=== PATIENT | female | born 1955 | race Caucasian/White ===

== ENCOUNTER 2022-12-12 10:52 | Outpatient (OUT) | payer MEDICARE, SELFPAY ==
[2022-12-12 11:43] LABS: Basophils Absolute Auto 0.1 10^3/uL (0.0-0.1); Basophils Percent Auto 0.6 % (0.2-2.0); Eosinophils Absolute Auto 0.3 10^3/uL (0.0-0.7); Eosinophils Percent Auto 3.1 % (0.9-7.0); Hematocrit 46.7 % (36.0-48.0); Hemoglobin 15.3 g/dL (12.0-16.0); Immature Granulocytes Abs Auto 0.03 10^3/uL (0.00-0.03); Immature Granulocytes Pct Auto 0.3 % (0.0-0.5); Lymphocytes Percent Auto 32.8 % (20.5-60.0); Mean Corpuscular HGB Conc 32.8 g/dL (29.9-35.2); Mean Corpuscular Volume 97.7 fL (81.0-99.0); Mean Platelet Volume 9.6 fL (9.5-13.5); Monocytes Absolute Auto 0.7 10^3/uL (0.3-0.8); Neutrophils Absolute Auto 5.2 10^3/uL (1.4-6.5); Neutrophils Percent Auto 56.2 % (43.0-75.0); Platelet Count 226 10^3/uL (150-450); Red Blood Count 4.78 10^6/uL (4.20-5.40); Red Cell Distribution Width 12.9 % (11.0-15.0); White Blood Count 9.3 10^3/uL (4.0-11.0)
[2022-12-12 12:04] LABS: Estimated Average Glucose 100 mg/dL; Glycohemoglobin A1C 5.1 % (4.5-6.2)
[2022-12-12 12:46] LABS: Free T4 1.02 ng/dL (0.76-1.46)
[2022-12-12 12:51] LABS: Alanine Aminotransferase 40 U/L (14-59); Albumin Level 4.1 g/dL (3.4-5.0); Alkaline Phosphatase 147 U/L (46-116); Anion Gap 13.4; Aspartate Amino Transferase 23 U/L (15-37); BUN Creatinine Ratio 12.8; Bilirubin Direct 0.1 mg/dL (0.0-0.2); Bilirubin Total 0.3 mg/dL (0.2-1.0); Calcium 10.2 mg/dL (8.5-10.1); Carbon Dioxide 26.7 mmol/L (21.0-32.0); Chloride 103 mmol/L (98-107); Chol HDL Ratio 4.6; Cholesterol 231 mg/dL (<=200); Estimated GFR (African America >60 (>=60); Estimated GFR (Non-African Ame 59 (>=60); Free T3 2.34 pg/mL (2.18-3.98); Glucose 98 mg/dL (74-106); HDL Cholesterol 50 mg/dL (40-60); Potassium 4.1 mmol/L (3.5-5.1); Sodium 139 mmol/L (136-145); Thyroid Stimulating Hormone 3.514 uIU/mL (0.358-3.740); Total Protein 8.1 g/dL (6.4-8.2); Triglycerides 167 mg/dL (<=150); VLDL CHOLESTEROL 33.4 mg/dL
== END 2022-12-12 10:53 | disposition home or self-care (01) ==
LOC: LAB 10:57
PROVIDERS: PCP Family Medicine; Visit Provider Family Medicine
DX: I10 Essential (primary) hypertension (principal); Z79.899 Other long term (current) drug therapy; E03.9 Hypothyroidism, unspecified; R73.03 Prediabetes; E78.5 Hyperlipidemia, unspecified
CPT/HCPCS: 36415; 80048; 80061; 80076; 83036; 84439; 84443; 84481; 85025

== ENCOUNTER 2023-06-09 16:45 | Emergency (ER) | payer MEDICARE, SELFPAY ==
[2023-06-09 16:49] VITALS: BP 153/87; PULSE 91; RESP 20; TEMP 36.8; O2SAT 95; BMI 32.3
--- NOTE | 2023-06-09 18:09 | ED_ITS ---
HPI - Female Genitourinary General Chief complaint: Urogenital-Female Stated complaint: YEAST INFECTION Time Seen by Provider: 06/09/23 17:30 Source: patient Mode of arrival: walk-in Limitations: no limitations History of Present Illness HPI Narrative: The patient presented to us with itching and rash in her perineal as well as rectal area that developed over the last few weeks, she is not recalling any rash specifically in that areas except for the redness and itching she also denies any fever or feeling sick or any chills. The main concern that it is very itching No other concerns Related Data Previous Rx's Medication Instructions Recorded clotrimazole 1 % topical cream 1 applic topical BID 2 weeks #90 06/09/23 grams loratadine 10 mg tablet (Claritin) 10 mg PO DAILY PRN itching #10 06/09/23 tabs prednisone 20 mg tablet 40 mg (2 x 20 mg) PO DAILY 4 days 06/09/23 #8 tabs Allergies Allergy/AdvReac Type Severity Reaction Status Date / Time codeine AdvReac Severe Verified 06/09/23 16:54 Review of Systems ROS Status of ROS 10 or more systems reviewed and unremark able except as noted in history and below PFSH PFSH Social History Smoking status: Heavy tobacco smoker Exam Narrative Exam Narrative: Nurses notes and vital signs reviewed and patient is not hypoxic. General: Well-appearing and in no apparent distress. Skin: Warm, dry, no pallor noted. No rash. Head: Normocephalic, atraumatic. Neck: Supple, non-tender. Eye: Pupils are equal, round and EOMI. No scleral icterus. Ears, Nose, Mouth, and Throat: TM are clear, no nasal mucosal hypertrophy. Oral mucosa is moist, no posterior oropharynx erythema, uvula is mid-line Cardiovascular: Regular Rate and Rhythm without murmur, gallop or rub. Respiratory: No accessory muscle use or respiratory distress. Lungs are clear to auscultation, no wheezing, rales or rhonchi Chest Wall: no tenderness Back: No midline thoracic or lumbar vertebral tenderness. No CVA tenderness Musculoskeletal: normal ROM, no calf or popliteal tenderness, no lower extremity edema/swelling GI: Abdomen is soft, non-distended. Normal bowel sounds. No masses appreciated. No tenderness to palpation. No rebound, guarding, or rigidity noted. In the perirectal area the patient have a redness with no specific rash but more of a macular redness as well as the patient have very mild redness in her perineal area there is no hotness or any signs of bacterial infection Neurological: A&O x4. No cranial nerve dysfunction observed. No truncal ataxia. Moves all extremities. Sensation intact. Psychiatric: Cooperative and interactive. Normal mood and affect. Constitutional Vital Signs, click to edit/add: Last Vital Signs Temp 98.2 F 06/09/23 16:49 Pulse 91 H 06/09/23 16:49 Resp 20 06/09/23 16:49 BP 153/87 H 06/09/23 16:49 Pulse Ox 95 06/09/23 16:49 O2 Del Method Room Air 06/09/23 16:49 Course Vital Signs Vital signs: Vital Signs Temperature 98.2 F 06/09/23 16:49 Pulse Rate 91 H 06/09/23 16:49 Respiratory Rate 20 06/09/23 16:49 Blood Pressure 153/87 H 06/09/23 16:49 Pulse Oximetry 95 06/09/23 16:49 Oxygen Delivery Method Room Air 06/09/23 16:49 Temperature 98.2 F 06/09/23 16:49 Pulse Rate 91 H 06/09/23 16:49 Respiratory Rate 20 06/09/23 16:49 Blood Pressure 153/87 H 06/09/23 16:49 Pulse Oximetry 95 06/09/23 16:49 Oxygen Delivery Method Room Air 06/09/23 16:49 MDM - Female Genitourinary MDM Narrative Medical decision making narrative: Right now the patient was instructed about the importance of monitoring his symptoms want to get discharged to make sure that there is no superimposed infe ction that we will develop after the treatment. The patient also was instructed to follow-up with her primary care doctor within a week for further evaluation The patient will be treated with 5 days of prednisone as well as Benadryl in the ER and loratadine to go home as well as clotrimazole cream twice daily for the next few weeks the patient is to follow up with primary care physician in next 2-3 days or to return to the emergency department should any of the signs or symptoms worsen or new symptoms develop. The patient agrees with the following Diagnosis and Treatment plan and the patient will be discharged home. Discharge Plan Discharge Chief Complaint: Urogenital-Female Clinical Impression: Candidal skin infection Patient Disposition: Home, Self-Care Time of Disposition Decision: 18:06 Prescriptions / Home Meds: New clotrimazole 1 % cream 1 applic topical BID 14 Days Qty: 90 0RF prednisone 20 mg tablet 40 mg PO DAILY 4 Days Qty: 8 0RF loratadine [Claritin] 10 mg tablet 10 mg PO DAILY PRN (Reason: itching ) Qty: 10 0RF Instructions: Skin Yeast Infection (ED) Stand Alone Forms: Portal Instructions Referrals: Taz Vazquez MD [Primary Care Provider] - 1 week
[2023-06-09] MEDS: PREDNISONE 20 MG TABLET 40 MG PO (18:11)
[2023-06-09] MEDS: DIPHENHYDRAMINE HCL 25 MG CAPSULE 50 MG PO (18:22)
== END 2023-06-09 18:27 | disposition home or self-care (01) ==
PROVIDERS: Emergency Provider Emergency Medicine; PCP Family Medicine
DX: B37.2 Candidiasis of skin and nail (principal); F17.210 Nicotine dependence, cigarettes, uncomplicated
CPT/HCPCS: 99283; J7512

== ENCOUNTER 2024-01-14 15:21 | Emergency (ER) | payer MEDICARE, SELFPAY ==
[2024-01-14 15:26] VITALS: BP 171/95; PULSE 95; TEMP 36.8; O2SAT 99; BMI 34.3
--- NOTE | 2024-01-14 15:48 | ED.PSYCH1 ---
HPI - Psych General Chief Complaint: Psychiatric Symptoms Stated Complaint: Suicidal Time Seen by Provider: 01/14/24 15:27 Source: Reports patient Mode of arrival: law enforcement Limitations: Reports no limitations History of Present Illness HPI Narrative: 68-year-old female presents to the emergency department via law enforcement for mental health evaluation. Patient states she has been arguing with her over the past couple days over family. Today, states things got heated, she said something she should have said, went to room and the next moment law enforcement was in her home. She states she had threatened to take a bunch of pills, which she continues to states she would never do. She has 2 daughters and grandchildren. She has no weapons in the house. Voices no other complaints. Denies any alcohol or drug use. She does smoke cigarettes Quality:?as above Severity:?moderate Timing:?as above, improved Context: Normal setting and activity? Modifying factors:?none Associated symptoms: as above Related Data Home Medications ?Medication ?Instructions ?Recorded ?Confirmed bupropion HCl 300 mg 24 hr tablet, 300 mg PO DAILY 01/14/24 01/14/24 extended release clomipramine 50 mg capsule 100 mg PO DAILY 01/14/24 01/14/24 famotidine 20 mg tablet 20 mg PO DAILY 01/14/24 01/14/24 hydrocodone 5 mg-acetaminophen 325 1 tab PO Q8H PRN pain 01/14/24 01/14/24 mg tablet levothyroxine 75 mcg tablet 150 mcg PO 01/14/24 temazepam 15 mg capsule 15 mg PO BEDTIME PRN sleep 01/14/24 01/14/24 Allergies Allergy/AdvReac Type Severity Reaction Status Date / Time codeine AdvReac Severe Verified 06/09/23 16:54 Review of Systems ROS Constitutional Denies: fatigue Ears, nose, mouth, and throat Denies: nasal congestion Cardiovascular Denies: chest pain Respiratory Denies: shortness of breath Gastrointestinal Denies: abdominal pain Psychiatric Denies: anxiety, change in sleep pattern, hopelessness, irritability, paranoia, suicidal ideation or homicidal ideation PFSH PFS Social History Smoking status: Heavy tobacco smoker Exam Constitutional Vital Signs, click to edit/add: Last Vital Signs Temp 98.2 F 01/14/24 15:26 Pulse 95 H 01/14/24 15:26 Resp 18 01/14/24 15:26 BP 171/95 H 01/14/24 15:26 Pulse Ox 99 01/14/24 15:26 O2 Del Method Room Air 01/14/24 15:26 Documenting provider has reviewed patient's vital signs: yes Common normals: no apparent distress, oriented x3, no limitations, alert and well nourished General appearance: cooperative, comfortable and well kempt Orientation/consciousness: Yes awake, Yes oriented to person, Yes oriented to place and Yes oriented to time HENMT Common normals: normocephalic and head/scalp atraumatic Head and scalp: normocephalic and atraumatic Eye Common normals: conjunctivae normal Conjunctiva: conjunctiva(e) normal Other: States chronic history of dry eyes Respiratory Common normals: normal respiratory effort and clear to auscultation bilaterally Effort & inspection: able to speak in complete sentences Auscultation: clear to auscultation bilaterally Cardio Common normals: regular rate, regular rhythm and no murmurs Rate: regular rate Rhythm: regular rhythm Neuro Common normals: oriented x3, no focal motor deficits and no sensory deficits noted Sensorium/orientation: awake, alert, oriented to person, oriented to place and oriented to time Gait (neuro): normal gait Psych Common normals: thought process normal, cooperative, affect normal, speech normal, activity/motor behavior normal, denies hallucinations, denies homicidal ideation and denies suicidal ideation Appearance: well kempt Speech: normal speech Thought process: normal thought process Course Vital Signs Vital signs: Vital Signs Temperature 98.2 F 01/14/24 15:26 Pulse Rate 95 H 01/14/24 15:26 Respiratory Rate 18 01/14/24 15:26 Blood Pressure 171/95 H 01/14/24 15:26 Pulse Oximetry 99 01/14/24 15:26 Oxygen Delivery Method Room Air 01/14/24 15:26 Temperature 98.2 F 01/14/24 15:26 Pulse Rate 95 H 01/14/24 15:26 Respiratory Rate 18 01/14/24 15:26 Blood Pressure 171/95 H 01/14/24 15:26 Pulse Oximetry 99 01/14/24 15:26 Oxygen Delivery Method Room Air 08/13/24 15:26 MDM - Psych MDM Narrative Medical decision making narrative: This is a pleasant 68-year-old female who presented to the emergency department for mental health evaluation. She presented via police. Reportedly, patient had stated she was going to take some pills. Patient states she would never do that, just made a threat as she was mad at her . States her and her have been fighting over the past couple days over family. She denies any prior history of suicide attempt. She has 2 daughters and grandchildren. She has no access to weapons. She denies any alcohol use. During evaluation, she repeatedly states that she did not mean it. On arrival, afebrile, vital signs are stable On exam, nontoxic, well-appearing patient in no distress. She makes good eye contact. She appears as though she has been crying, but she states she has chronic dry eyes. She continues to deny any suicidal or homicidal ideation. Heart regular rate and rhythm. Lung sounds clear and equal bilaterally. Favor anger, stress reaction, threat Suicidal ideation less likely based on history and physical exam \ she was also evaluated by ED attending who did not voice concern about patient being a threat to herself Disposition ? The patient was discharged. Plan: Patient will be discharged to home. Condition at time of disposition: stable ? Advised to follow up with primary provider. Advised to return for any worsening and/or development of new, concerning signs or symptoms PLEASE NOTE: Portions of the medical record may have been produced using electronic senior salesforce developer and may contain errors with respect to translation of words which may not have been identified prior to finalization of the chart. Medical Records Attestation: I reviewed the patient's medical records. Discharge Plan Discharge Stand Alone Forms: Portal Instructions Chief Complaint: Psychiatric Symptoms Clinical Impression: Anger reaction, Stress reaction Patient Disposition: Home, Self-Care Time of Disposition Decision: 15:53 Condition: Good Mode of Transportation: Private Vehicle Prescriptions / Home Meds: No Action hydrocodone-acetaminophen 5-325 mg tablet 1 tab PO Q8H PRN (Reason: pain) levothyroxine 75 mcg tablet 150 mcg PO Rx Instructions: Take Saturday, Saturday and Saturday famotidine 20 mg tablet 20 mg PO DAILY temazepam 15 mg capsule 15 mg PO BEDTIME PRN (Reason: sleep) clomipramine 50 mg capsule 100 mg PO DAILY bupropion HCl 300 mg tablet extended release 24 hr 300 mg PO DAILY Print Language: Faroese Instructions: Stress (ED) Referrals: Taz Vazquez MD [Primary Care Provider] - 1 week
--- OUTSIDE RECORDS SUMMARY | 2024-01-14 15:55 | XMS_ITS | CCD ---
Author Organization [facility] Care Team Providers Care Foundation Engineer Name Role Phone Shirley JUAN, Taz Burch Primary Care Provider DEBBY, DR HARRIET Mathis Admitting Unavailable HEDGEBrendon, DR HARRIET Mathis Attending Unavailable SHIRLEY, DR TAZ Muniz Primary Care Unavailable NEENA, DR EMI Oconnor Consulting Unavailable HEDGEBrendon, DR HARRIET Mathis Consulting Unavailable DEBBY, HARRIET Mathis Referring Unavailable NADJOSE, TAZ BURCH Primary Care Unavailtatiana e HARRIET GUARDADO Referring Unavailable SHIRLEY, TAZ BURCH Primary Care UnavailSHERITA De La Paz Attending Unavailable SHIRLEY, TAZ Attending Unavailable Taz Watson MD Primary Care Provider Allergies Allergy Classification Reported Allergen(s) Allergy Type Date of Onset Reaction(s) Facility (4 sources) Codeine Drug Allergy 4 [facility] [employer] (1 source) rofecoxib Drug Allergy 6 [facility] Work Phone: (1 source) Morphine And Related Propensity to adverse reactions to drug 6 [facility] Work Phone: (1 source) Codeine Drug Allergy 6 [facility] Repository Medications Current Medications Medication Drug Class(es) Dates Sig (Normalized) Sig (Original) acetaminophen 325 mg / HYDROcodone bitartrate 5 mg oral tablet (4 sources) Opioid Agonist Start: 06-18-2023 End: 07-17-2023 take 1 tablet by mouth four times daily as needed for pain HYDROcodone-acetam inophen ([place]) 5-325 MG tablet Indications: Lumbar spondylosis Take 1 tablet by mouth 4 (four) times a day as needed for severe pain 120 tablet 0 07/17/2023 Active aspirin 81 mg oral tablet (1 source) Platelet Aggregation Inhibitor, Nonsteroidal Anti-inflammatory Drug take 1 tablet by mouth once daily aspirin 81 MG tablet Indications: Routine gynecological examination Take 81 mg by mouth daily. 0 Active baclofen 10 mg oral tablet (1 source) gamma-Aminobutyric Acid-ergic Agonist Start: 02-08-2015 baclofen (LIORESAL) 10 MG tablet 24 hr buPROPion hydrochloride 300 mg extended release oral tablet (4 sources) Aminoketone Start: 02-10-2015 buPROPion (WELLBUTRIN XL) 300 MG XL tablet clomiPRAMINE hydrochloride 50 mg oral capsule (4 sources) Tricyclic Antidepressant take 2 capsules by mouth in the morning clomiPRAMINE (Anafranil) 50 MG capsule Take 100 mg by mouth in the morning. 0 Active take 1 capsule by mouth once oscar ly clomiPRAMINE (ANAFRANIL) 50 MG capsule Indications: Routine gynecological examination Take 50 mg by mouth nightly. 0 Active levothyroxine sodium 0.075 mg oral tablet (4 sources) l-Thyroxine Start: 10-06-2013 levothyroxine (SYNTHROID) 75 MCG tablet levothyroxine (S ynthroid, Levoxyl) 75 MCG tablet 25 mcg 0 Active linaclotide 0.29 mg oral capsule (4 sources) Guanylate Cyclase-C Agonist Start: 04-06-2016 take 1 capsule by mouth once daily LINZESS 290 MCG CAPS capsule TAKE 1 CAPSULE BY MOUTH DAILY 5 04/06/2016 Active loratadine 10 mg oral tablet (3 sources) Start: 06-10-2023 take 1 tablet by mouth in the morning Allergy Relief 10 MG tablet Take 1 tablet by mouth in the morning. 0 06/10/2023 Active pravastatin sodium 40 mg oral tablet (4 sources) HMG-CoA Reductase Inhibitor Start: 10-06-2013 pravastatin (PRAVACHOL) 40 MG tablet temazepam 15 mg oral capsule (4 sources) Benzodiazepine Start: 05-31-2023 End: 08-29-2023 temazepam (Restoril) 15 MG capsule Indications: Primary insomnia Take 1 capsule (15 mg) by mouth as needed at bedtime for sleep 90 capsule 0 05/31/2023 08/29/2023 Active Start: 03-15-2016 temazepam (RES TORIL) 15 MG capsule Completed/Discontinued Medications Medication Drug Class(es) Dates Sig (Normalized) Sig (Original) cetirizine hydrochloride 10 mg oral tablet (2 sources) Histamine-1 Receptor Antagonist Start: 06-13-2023 End: 07-11-2023 take 1 tablet by mouth in the morning cetirizine (ZyrTEC) 10 MG tablet Indications: Dermatitis Take 1 tablet (10 mg) by mouth in the morning for 15 days. 15 tablet 0 06/13/2023 07/11/2023 Discontinued famotidine 20 mg oral tablet (6 sources) Histamine-2 Receptor Antagonist Start: 10-06-2013 End: 07-11-2023 take 1 tablet by mouth in the morning famotidine (Pepcid) 20 MG tablet Indications: Dermatitis , Urticaria Take 1 tablet (20 mg) by mouth in the morning and 1 tablet (20 mg) before bedtime. Do all this for 15 days. 30 tablet 0 06/13/2023 07/11/2023 Discontinued fluconazole 150 mg oral tablet (2 sources) Azole Antifungal Start: 06-07-2023 End: 07-11-2023 take 1 tablet by mouth once fluconazole (Diflucan) 150 MG tablet Take 1 tablet by mouth 1 (one) time 0 06/07/2023 07/11/2023 Discontinued predniSONE 20 mg oral tablet (2 sources) Start: 06-13-2023 End: 07-11-2023 predniSONE (Deltasone) 20 MG tablet Indications: Dermatitis 1 pill three times day X5 days, 1 pill twice day for 3 days, then 1 pill daily for 3 days, then 1/2 pill daily for 3 days. Take with food 26 tablet 0 06/13/2023 07/11/2023 Discontinued Problems Active Problems Problem Classification Problem Date Documented Da te Episodic/Chronic Allergic reactions (6 sources) Urticaria; Translations: [Urticaria, unspecified] Onset: 4 Resolved: 4 06-13-2023 Episodic Anxiety disorders (5 sources) Generalized anxiety disorder; Translations: [Generalized anxiety disorder] Onset: 4 07-11-2023 Chronic Chronic obstructive pulmonary disease and bronchiectasis (3 sources) Chronic obstructive lung disease; Translations: [Chronic obstructive pulmonary disease, unspecified] Onset: 4 07-11-2023 Chronic Delirium, dementia, and amnestic and other cognitive disorders (3 sources) Senile dementia; Translations: [Unspecified dementia without behavioral disturbance] Onset: 4 07-11-2023 Chronic Disorders of lipid metabolism (3 sources) Dyslipidemia; Translations: [Hyperlipidemia, unspecified] Onset: 4 07-11-2023 Chronic Esophageal disorders (5 sources) Gastroesophageal reflux disease without esophagitis; Translations: [Gastro-esophageal reflux disease without esophagitis] Onset: 4 07-11-2023 Chronic Essential hypertension (5 sources) Benign essential hypertension; Translations: [Essential (primary) hypertension] Onset: 4 07-11-2023 Chronic Menopausal disorders (1 source) Postmenopausal bleeding; Translations: [Postmenopausal bleeding] Onset: 2 Chronic Miscellaneous mental health disorders (5 sources) Primary insomnia; Translations: [Primary insomnia] Onset: 4 07-11-2023 Chronic Mood disorders (5 sources) Recurrent major depressive episodes, mild ; Translations: [Major depressive disorder, recurrent, mild] Onset: 4 07-11-2023 Chronic Osteoarthritis (3 sources) Primary gonarthrosis, bilateral; Translations: [Bilateral primary osteoarthritis of knee] Onset: 3 05-06-2023 Chronic Other gastrointestinal disorders (3 sources) Irritable bowel syndrome with diarrhea; Translations: [Irritable bowel syndrome with diarrhea] Onset: 4 07-11-2023 Chronic Other liver diseases (3 sources) Non-alcoholic fatty liver; Translations: [Fatty (change of) liver, not elsewhere classified] Onset: 4 07-11-2023 Chronic Other nervous system disorders (3 sources) Paresthesia of foot ; Translations: [Paresthesia of skin] Onset: 3 05-06-2023 Episodic Other nutritional; endocrine; and metabolic disorders (3 sources) Body mass index 30+ - obesity; Translations: [Body mass index (BMI) 35.0-35.9, adult] Onset: 4 06-13-2023 Chronic Peripheral and visceral atherosclerosis (3 sources) Intermittent claudication; Translations: [Peripheral vascular disease, unspecified] Onset: 4 07-11-2023 Chronic Residual codes; unclassified (3 sources) Tobacco user; Translations: [Tobacco use] Onset: 4 06-13-2023 Episodic Spondylosis; intervertebral disc disorders; other back problems (6 sources) Lumbar spondylosis; Translations: [Spondylosis without myelopathy or radiculopathy, lumbar region] Onset: 3 07-11-2023 Chronic Past or Other Problems Problem Classification Problem Date Documented Da te Episodic/Chronic Sprains and strains (1 source) Neck sprain; Translations: [Sprain of joints and ligaments of unspecified parts of neck, initial encounter] Onset: 01-31-2004 05-20-2017 Episodic Results Test Name Value Interpretation Reference Range Facil [facility] Surgical Pathologyon 022 Surgical Pathology (NOTE) -- Diagnosis -- ENDOMETRIUM, BIOPSY: -SCANT FRAGMENTS OF BENIGN COLUMNAR AND SQUAMOUS EPITHELIUM -SEE COMMENT -- Diagnosis Comment -- Within the observed sections there is no intact endometrial mucosa present for evaluation. The specimen is consistent with that obtained from an atrophic type endometrium, however, clinical correlation is required. Ayush De La Torre D.O. Electronically Signed Out [facility]/04/30/2022 Clinical Information Pre-op Diagnosis: PMB Operative Findings: ENDOMETRIAL BX Source of Specimen A: ENDOMETRIAL BX Gross Description ASHLEY BAPTISTE, UNDESIGNATED Clear to white mucinous fragments, 1.0 x 0.5 x 0.2 cm in aggregate. Entirely 1cs. jg tm Microscopic Description Microscopic examination performed. SURGICAL PATHOLOGY CONSULTATION Patient Name: ASHLEY BAPTISTE Med Rec: [id number] Path Number: [id number] [facility] ANATOMIC PATHOLOGY [address] [place] [id number] [facility] Comment on above: Performed By: #### P PPVS #### [facility] [employer] [address] [place] [id number] Industrial Hygiene Engineer: Ward Tellez MD MG MAMM SCREEN 3D SG CADon 03-14-2022 MG MAMM SCREEN 3D SG CAD Patient: ASHLEY BAPTISTE Exam Date: 03/14/2022 : 1955 Gender:F Ordering : DR HARRIET GUARDADO Admission #: [id number] Family : Order #: [id number] CLICK HERE TO VIEW EXAM RADIOLOGY REPORT PROCEDURE: MAMMOGRAM SCREENING 3D BILATERAL CAD COMPARISON: MG MAMM SCREEN SG W CAD, 12/02/2018. MG MAMM SCREEN SG W CAD, 02/16/2020. INDICATIONS: Screening mammography Calculator Name NCI Breast Cancer Risk Assessment Tool 5 Year Breast Cancer Risk 1.10% Lifetime Breast Cancer Risk 3.80% Personal Breast Cancer No Personal Ovarian Cancer No Treatments None Family Cancers Grandmother-maternal with breast cancer at age 58. LOCATION: [facility] BREAST COMPOSITION: Scattered areas fibroglandular density. FINDINGS: DIAGNOSTIC CATEGORY 1--NEGATIVE. NO CHANGE FROM COMPARISON ASSESSMENT. Scattered benign-appearing calcifications are present. Scattered benign-appearing lymph nodes are present. RIGHT BREAST: No significant suspicious finding. LEFT BREAST: No significant suspicious finding. RECOMMENDATIONS: ROUTINE MAMMOGRAM AND CLINICAL EVALUATION IN 12 MONTHS. PLEASE NOTE: A NORMAL MAMMOGRAM DOES NOT EXCLUDE THE POSSIBILITY OF BREAST CANCER. A CLINICALLY SUSPICIOUS PALPABLE LUMP SHOULD BE BIOPSIED. Dictated by: Emi Merritt MD on 03/14/2022 at 14:42 Approved by: Emi Merritt MD on 03/14/2022 at 14:44 Normal [facility] Cytologyon 02-08-2022 Cytology (NOTE) INTERPRETATION Cervical material, (ThinPrep vial, Imaging-assisted review): Specimen Adequacy: Satisfactory for evaluation. Descriptive Diagnosis: Negative for intraepithelial lesion or malignancy. Mechanical Development Engineer: VALERY STEVENS(ASCP) Electronically Signed Out /02/15/2022 Source: A: Cervical material, (ThinPrep vial, Imaging-assisted review) Clinical History Postmenopausal Z01.419 Routine metal fence erector exam without abnormal findings High risk HPV DNA testing is requested if the diagnosis is abnormal GYNECOLOGIC CYTOLOGY REPORT Patient Name: ASHLEY BAPTISTE [facility] Rec: [id number] Path Number: [id number] [facility] ANATOMIC PATHOLOGY [address] [place] [id number] Normal [facility] Comment on above: Performed By: #### P PPVP #### [employer] [address] [place] [id number] Industrial Hygiene Engineer: Ward Tellez MD Vital Signs Date Time Vital Sign Value Performing Clinician Kimberly szymanski 07-11-2023 13:34-0500 Body height 149.9 cm Taz Watson MD Work Phone: [facility] 07-11-2023 13:34-0500 Body mass index (BMI) [Ratio] 35.55 kg/m2 Taz Watson MD Work Phone: [facility] 07-11-2023 13:34-0500 Body temperature 96.21 [degF] Taz Watson MD Work Phone: [facility] 07-11-2023 13:34-0500 Body weight 79.83 kg Taz Watson MD Work Phone: [facility] 07-11-2023 13:34-0500 Diastolic blood pressure 80 mm[Hg] Taz Watson MD Work Phone: [facility] 07-11-2023 13:34-0500 Heart rate 93 /min Taz Watson MD Work Phone: [facility] 07-11-2023 13:34-0500 SaO2% (BldA) [Mass fraction] 92 % Taz Watson MD Work Phone: [facility] 07-11-2023 13:34-0500 Systolic blood pressure 140 mm[Hg] Taz Watson MD Work Phone: [facility] Healthcare Encounters Encounter Date Encounter Type Care Provider Facility Start: 07-17-2023 Refill Staci Maguire [facility] Comment on above: Lumbar spondylosis Start: 07-11-2023 End: 07-11-2023 ambulatory TAZ WATSON Not Available Start: 07-11-2023 End: 07-11-2023 Office outpatient visit 25 minutes Tza Watson MD Work Phone: [facility] Comment on above: Benign essential hyp ertension (CMS/HCC) (Primary Dx); Lumbar spondylosis; MDD (major depressive disorder), recurrent episode, mild (HCC) (CMS/HCC); HEIKE (generalized anxiety disorder) (CMS/HCC); Primary insomnia; Gastroesophageal reflux disease without esophagitis Start: 06-13-2023 End: 06-13-2023 ambulatory SHERITA JUNIOR Not Available Start: 04-25-2022 End: 04-26-2022 ambulatory HARRIET GUARDADO [facility] Start: 03-14-2022 End: 03-15-[address] HARRIET GUARDADO Facility: Start: 02-08-2022 End: 02-09-[address] [facility] Start: 02-08-2022 Encounter for gynecological examination (general) (routine) without abnormal findings [facility] Start: 02-08-2022 End: 02-08-2022 Patient encounter procedure Taz Watson MD Work Phone: [facility] Start: 02-08-2022 End: 02-08-2022 Subsequent hospital visit by physician Taz Watson MD Work Phone: [email or web address] Comment on above: Women's annual routi ne gynecological examination Procedures Date Procedure Procedure Detail Performing Clinician Start: 02-17-2020 Mammography Tza garcia MD Work Phone: Plan of Treatment Date Care Activity Detail Author Start: 01-06-2024 End: 01-06-2024 Patient encounter procedure 01/06/2024 2:15 PM EDT Office Visit [facility] [address] [place] [phone] Taz Watson MD [address] [place] [phone] [facility] Start: 02-08-2023 Medicare Annual Well ness (AWV) Medicare Annual Wellness (AWV) [facility] Start: 02-01-2023 Influenza vaccination Influenza Vacc ine (#1) [facility] Start: 02-16-2022 Screening for malign ant neoplasm of breast [facility] Start: 02-01-2022 Influenza vaccination Flu vaccine (# 1) [facility] Start: 09-18-2021 COVID-19 Vaccine (4 - Booster for Pfizer series) COVID-19 Vaccine (4 - Booster for Pfizer series) [facility] Start: 02-16-2021 Screening for malign ant neoplasm of breast Mammogram [facility] Start: 03-20-2017 Pneumococcal 65+ yea rs Vaccine (2 - PPSV23 or PCV20) Pneumococcal 65+ years Vaccine (2 - PPSV23 or PCV20) [facility] Start: 05-15-2016 Pneumococcal Vaccine : 65+ Years (2 - PPSV23 or PCV20) Pneumococcal Vaccine: 65+ Years (2 - PPSV23 or PCV20) [facility] Start: 04-19-2015 Shingles vaccine (2 of 3) Shingles vaccine (2 of 3) [facility] Start: 2009 Screening for osteoporosis DEXA (modify frequency per FRAX score) [facility] Start: 2004 Screening for malign ant neoplasm of lung Low dose CT lung screening [facility] Start: 11-21-1999 Screening for malign ant neoplasm of colon [facility] Start: 1989 Diabetes screen Diabetes screen [facility] Start: 1973 DTaP/Tdap/Td vaccine (1 - Tdap) DTaP/Tdap/Td vaccine (1 - Tdap) [facility] Start: 1972 Hepatitis C screening Hepatitis C sc reen [facility] Start: 1966 Depression Screen Depression Screen [facility] Start: 1964 Lipid panel Lipids [facility] Start: 1955 Screening for malign ant neoplasm of colon [facility] End: 02-08-2022 Cytopathology procedure, preparation of smear, genital source [facility] Routine Women's Annual Routine Gynecological Examination 1 Occurrences starting 02/08/2022 until 02/08/2022 [facility] Work Phone: Comment on above: 1 Occurrences starti ng 02/08/2022 until 02/08/2022 Immunizations Immunization Date Immunization Notes Care Provider Myrtle warren 05-17-2022 influenza virus vaccine, unspecified formulation Taz Watson MD Work Phone: [facility] 03-20-2016 pneumococcal conjuga te vaccine, 13 valent Taz Naderer MD Work Phone: [facility] Work Phone: 02-09-2016 pneumococcal conjuga te vaccine, 13 rinku Watson MD Work Phone: [facility] Work Phone: 02-22-2015 zoster vaccine, live Taz laguerre MD Work Phone: [facility] Work Phone: Payers Date Payer Category Payer Medicare [facility] E MEDICARE [facility] MEDICARE ADVANTAGE [id number] 2023-Present [address] [address] [place] [address] [id number] 2021 Medicaid [id number] 2021 Medicaid [employer] MEDICA[employer] MEDICAID [place] [id number] 2021-Present [address] [place] [address] [id number] 2017 Medicare [id number] 1959 Medicaid [id number] 1955 Unknown [id number] 1955 Unknown [id number] 1955 Unknown [id number] 1955 Unknown [id number] 1955 Unknown [id number] Social History Date Type Detail Facility Start: 05-20-2017 End: 07-02-2023 Tobacco smoking status NHIS Smokes tobacco daily [employer] Phone: History of tobacco use Cigarette Smoker B [facility] [employer] Phone: Start: 05-20-2017 End: 07-11-2023 Cigarettes smoked current (pack per day) - Reported 1 [employer] Phone: Start: 05-20-2017 End: 07-02-2023 Tobacco use and exposure Smokeless tobacco non-user [employer] Phone: Start: 02-08-2022 Alcohol intake Current non-dr manager farm of alcohol (finding) [employer] Phone: Start: 1955 Sex Assigned At Not on file B ON [employer] Phone: Start: 07-11-2023 Alcohol intake Ex-drinker (finding) [facility] Start: 07-11-2023 Tobacco use panel [facility] Start: 07-02-2023 Tobacco Comment Started smokin g : 40 years ; 11-20 cigs/day [facility] Start: 07-02-2023 Alcohol Comment caffine:soda 4 times daily; 3-4 cups per day [facility] History of Present illness Narrative 07-11-2023 Taz Watson MD - 07/11/2023 2:06 PM Mahi Watson MD - 07/11/2023 2:06 PM Mahi Watson MD - 07/11/2023 2:06 PM Mahi Watson MD - 07/11/2023 2:06 PM EST Note Date & Type Note Facility 07-11-2023 History of Presen t illness Narrative Associated Problem(s): Primary insomnia Sleeping well with restoril and continue. Associated Problem(s): MDD (major depressive disorder), recurrent episode, mild (HCC) (CMS/HCC) Symptoms tolerable with wellbutrin and continue. Associated Problem(s): Lumbar spondylosis Pain stable and continue home stretches and PT exercises. Use norco PRN. Associated Problem(s): Gastroesophageal reflux disease without esophagitis Symptoms controlled with pepcid and continue. Associated Problem(s): HEIKE (generalized anxiety disorder) (CMS/HCC) Symptoms tolerable with wellbutrin and continue. Associated Problem(s): Benign essential hypertension (CMS/HCC) BP controlled and monitor PRN. Subjective Patient ID: Ashley Baptiste is a 67 y.o. female who presents for Follow-up (2 w). F/u HTN, back pain, depression, anxiety, insomnia, and GERD. Patient stable today. Rash resolved after treatment. Checking BP PRN and typically controlled. BP normal today. Not taking medication and BP remains controlled. Back pain unchanged. Pain in low back and across top hips. Occasional radiation into left gluteal region and down legs. Pain worse with walking, standing, and lifting. Using norco PRN and helps control pain. Able to stay active and complete ADLs. Depression controlled with wellbutrin. Not down or sad and feels happier. Anxiety stable. Not as stressed out or overwhelmed. Not as nervous or worry as much. Not as de santiago or irritable. Sleeping well with restoril. Able to fall asleep and stay asleep. Wakes up rested in am. GERD controlled with pepcid. Denies epigastric pain or burning and not waking up with symptoms. Review of Systems Respiratory: Negative for cough, shortness of breath and wheezing. Cardiovascular: Negative for chest pain and palpitations. Gastrointestinal: Negative for abdominal pain, diarrhea, nausea and vomiting. Genitourinary: Negative for dysuria. Objective Physical Exam Constitutional: General: She is not in acute distress. Appearance: Normal appearance. HENT: Head: Normocephalic. Right Ear: Tympanic membrane normal. Left Ear: Tympanic membrane normal. Eyes: Extraocular Movements: Extraocular movements intact. Pupils: Pupils are equal, round, and reactive to light. Cardiovascular: Rate and Rhythm: Normal rate and regular rhythm. Heart sounds: No murmur heard. No friction rub. No gallop. Pulmonary: Effort: Pulmonary effort is normal. Breath sounds: Normal breath sounds. No wheezing, rhonchi or rales. Abdominal: General: Bowel sounds are normal. There is no distension. Palpations: Abdomen is soft. Tenderness: There is no abdominal tenderness. There is no guarding or rebound. Musculoskeletal: Cervical back: Neck supple. Right lower leg: No edema. Left lower leg: No edema. Neurological: Mental Status: She is alert. Assessment/Plan Problem List Items Addressed This Visit Lumbar spondylosis Pain stable and continue home stretches and PT exercises. Use norco PRN. Benign essential hypertension (CMS/HCC) - Primary BP controlled and monitor PRN. HEIKE (generalized anxiety disorder) (CMS/HCC) Symptoms tolerable with wellbutrin and continue. Gastroesophageal reflux disease without esophagitis Symptoms controlled with pepcid and continue. MDD (major depressive disorder), recurrent episode, mild (HCC) (CMS/HCC) Symptoms tolerable with wellbutrin and continue. Primary insomnia Sleeping well with restoril and continue. documented in this encounter [facility] Evaluation note Note Date & Type Note Facility Evaluation note Diagnosis Women's annual routine gynecological examination documented in this encounter [facility] [employer] Phone: Evaluation note Note Date & Type Note Facility Evaluation note Diagnosis Benign essential hypertension (CMS/HCC)- Primary Essential hypertension, benign Lumbar spondylosis Lumbosacral spondylosis without myelopathy MDD (major depressive disorder), recurrent episode, mild (HCC) (CMS/[facility]) HEIKE (generalized anxiety disorder) ([facility]) Generalized anxiety disorder Primary insomnia Persistent disorder of initiating or maintaining sleep Gastroesophageal reflux disease without esophagitis Esophageal reflux documented in this encounter [facility] Evaluation note Note Date & Type Note Facility Evaluation note Diagnosis Lumbar spondylosis Lumbosacral spondylosis without myelopathy documented in this encounter [facility] Summary Purpose Family History No Family History Records FoundNo Family History Records FoundNo Family History Records Found Advance Directives No Advanced Directives Records FoundNo Advanced Directives Records FoundNo Advanced Directives Records Found Additional Source Comments Care Teams (unrecognized sec tion and content) Foundation Engineer Relationship Specialty Start Date End Date Taz Watson MD [address] [place], [place] [id number] PCP - General Family Medicine 05/20/17 Foundation Engineer Relationship Specialty Start Date End Date Taz Watson MD [address] [place] [phone] PCP - General Family Medicine 07/11/23 Foundation Engineer Relationship Specialty Start Date End Date Taz Watson MD [address] [place] [phone] PCP - General Family Medicine 07/11/23 INFORMATION SOURCE (unrecogn ized section and content) DATE CREATED AUTHOR 03/15/2022 [facility] DATE CREATED AUTHOR AUTHOR'S ORGANIZ ATION 04/30/2022 [facility] DATE CREATED AUTHOR AUTHOR'S ORGANIZ ATION 07/12/2023 [facility] EPIC Reason for Visit (unrecogniz ed section and content) Reason Comments Follow-up 2 w Reason Onset Date Comments Med Refill 07/17/2023 FOR RECORDS PERTAINING TO PATIENTS WHO ARE OR HAVE BEEN ENROLLED IN A CHEMICAL DEPENDENCY/SUBSTANCEABUSE PROGRAM, SOME INFORMATION MAY BE OMITTED. This clinical summary was aggregated from multiple sources. Caution should be exercised in using it in the provision of clinical care. This summary normalizes information from multiple sources, and as a consequence, information in this document may materially change the coding, format and clinical context of patient data. In addition, data may be omitted in some cases. CLINICAL DECISIONS SHOULD BE BASED ON THE PRIMARY CLINICAL RECORDS. [employer] [facility]. provides no warranty or guarantee of the accuracy or completeness of information in this document.
--- NOTE | 2024-01-14 19:11 | ECG_ITS ---
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
== END 2024-01-14 16:02 | disposition home or self-care (01) ==
PROVIDERS: Emergency Provider Emergency Medicine; PCP Family Medicine
DX: F43.9 Reaction to severe stress, unspecified (principal); R45.4 Irritability and anger; F17.210 Nicotine dependence, cigarettes, uncomplicated
CPT/HCPCS: 93005; 99283

== ENCOUNTER 2025-01-20 09:10 | Outpatient (OUT) | payer MEDICARE, SELFPAY ==
--- OUTSIDE RECORDS SUMMARY | 2025-01-20 09:15 | XMS_ITS | Clinical Summary ---
Author Organization [facility] Address [address], [address] [place] [address] Care Team Providers Care Appeals Board Referee Name Role Phone Taz Vazquez MD Primary Care Provider + Allergies Active Allergy Reactions Criticality Noted Date Comments Codeine 12/10/2013 Morphine And Codeine 04/10/2016 Rofecoxib 04/10/2016 Medications famotidine (PEPCID) 20 MG tabletIndications: Routine gynecological examination 4 Active levothyroxine (SYNTHROID) 75 MCG tabletIndications: Routine gynecological examination 4 Active pravastatin (PRAVACHOL) 40 MG tabletIndications: Routine gynecological examination 4 Active clomiPRAMINE (ANAFRANIL) 50 MG capsuleIndications :Routine gynecological examination Take 50 mg by mouth nightly. Active aspirin 81 MG tabletIndications: Routine gynecological examination Take 81 mg by mouth daily. Active baclofen (LIORESAL) 10 MG tablet 0 5 Active buPROPion (WELLBUTRIN XL) 300 MG XL tablet 0 5 Active LINZESS 290 MCG CAPS capsule TAKE 1 CAPSULE BY MOUTH DAILY 5 6 Active temazepam (RESTORIL) 15 MG capsule 0 6 Active HYDROcodone-acetam inophen (NORCO) 5-325 MG per tablet TAKE 1 TABLET BY MOUTH EVERY 6 HOURS NEEDED 2 Active Active Problems Problem Noted Date Diagnosed Date Sprain of neck 01/31/2004 Immunizations Immunization Administration Dates Next Due Pneumococcal, PCV-13, PREVNAR 13, (age 6w+), IM, 0.5mL 03/20/2016,02/09/2016 Zoster Live (Zostavax) 02/22/2015 Social History Tobacco Use Types Packs/Day Years Used Date Smoking Tobacco: Every Day Cigarettes 1 30 Smokeless Tobacco: Never Tobacco Cessation:Ready to Q uit: Not Asked; Counseling Given: Not Answered Alcohol Use Standard Drinks/Week Comments No 0 (1 standard drink = 0.6 oz pur e alcohol) Comments No Sex and Gender Information Value Date Recorded Sex Assigned at Not on file Legal Sex Female 1:18 PM EST Gender Identity Not on file Sexual Orientation Not on file Last Filed Vital Signs Vital Sign Reading Time Taken Comments Blood Pressure 122/72 05/03/2022 3:07 PM EST Pulse - - Temperature - - Respiratory Rate - - Oxygen Saturation - - Inhaled Oxygen Concentration - - Weight 72 kg (158 lb 12.8 oz) 05/03/2022 3:07 PM EST Height 149.9 cm (4' 11 ) 05/03/2022 3:07 PM EST Body Mass Index 32.07 05/03/2022 3:07 PM EST Plan of Treatment Health Maintenance Due Date Last Done Comments Lipids 1964 Depression Screen 1966 Hepatitis C screen 1972 DTaP/Tdap/Td vaccine (1 - Tdap) 1973 Colonoscopy 11/21/1999 Colorectal Cancer Screen 11/21/1999 FIT/FOBT: Average risk 11/21/1999 Fecal-DNA (Cologuard): Average risk 11/21/1999 Sigmoidoscopy/CT colonography 11/21/1999 Lung Cancer Screening &/or Counseling 2004 DEXA (modify frequency per FRAX score) 2009 Shingles vaccine (2 of 3) 04/19/2015 02/22/2015 Pneumococcal 50+ years Vaccine (2 of 2 - PPSV23, PCV20, or PCV21) 05/15/2016 03/20/2016, 02/09/2016 Breast cancer screen 02/16/2022 02/17/2020, 12/02/2018, 11/19/2017, Additional history exists COVID-19 Vaccine ( season) 2024 05/20/2021, 08/24/2020, 08/03/2020 Annual Wellness Visit (Medicare Advantage) 06/03/2024 Flu vaccine (#1) 01/01/2025 Respiratory Syncytial Virus (RSV) or age 60 yrs+ (1 - 1-dose 75+ series) 2029 Hepatitis A vaccine Aged Out No longe r eligible based on patient's age to complete this topic Hepatitis B vaccine Aged Out No longe r eligible based on patient's age to complete this topic Hib vaccine Aged Out No longer eligi ble based on patient's age to complete this topic Meningococcal (ACWY) vaccine Aged Out No longer eligible based on patient's age to complete this topic Meningococcal B vaccine Aged Out No l onger eligible based on patient's age to complete this topic Polio vaccine Aged Out No longer elig ible based on patient's age to complete this topic Procedures Procedure Name Priority Date/Time Associated Diagnosis Comments EMILY DIGITAL SCREEN W OR WO CAD BILATERAL Routine 02/17/2020 Visit for screening mammogram from Last 3 Months or Most Recently Relevant to Health Maintenance Results * EMILY DIGITAL SCREEN W OR WO CAD BILATERAL (02/17/2020) Anatomical Region Laterality Modality Breast Bilateral Mammography Lebron Abad MD IM MAMMOGRAPHY ORDERABLES Ed ited Result - Final from Last 3 Months or Most Recently Relevant to Health Maintenance Insurance [place]ICAID [place] [facility] DUAL COMPLETE [place]ID [place] Care Teams Appeals Board Referee Relationship Specialty Start Date End Date Taz Vazquez MD [address] [place] [address] PCP - General Family Medicine 05/20/17
--- OUTSIDE RECORDS SUMMARY | 2025-01-20 09:16 | XMS_ITS | Encounter Summary ---
Author Organization [facility] Address [address] [place] [address] Care Team Providers Care Relationship Management Lead Name Role Phone Taz Vazquez MD Primary Care Provider [phone] Encounter Details Date Type Department Care Team (Late st Contact Info) Description 01/18/2025 Telephone [facility] [address] [place] [address] Taz Vazquez MD [address] [place] [phone] Social History Tobacco Use Types Packs/Day Years Used Date Smoking Tobacco: Every Day Cigarettes Smokeless Tobacco: Never Comments:Started smoking : 4 0 years ; 11-20 cigs/day Alcohol Use Standard Drinks/Week Comments Not Currently 0 (1 standard drink = 0.6 oz pure alcohol) caffine:soda 4 times daily; 3-4 cups per day Comments Unknown Sex and Gender Information Value Date Recorded Sex Assigned at Not on file Legal Sex Female 6:51 PM EDT Gender Identity Not on file Sexual Orientation Not on file documented as of this encounter Miscellaneous Notes * Telephone Encounter - Taz Vazquez MD - 01/18/2025 4:19 PM EDT Stop prilosec and will send in pepcid at higher dose. * Telephone Encounter - DELMA DHILLON - 01/18/2025 2:16 PM EDT Patient called states she does not like the new stomach medication, it does not seem to be working,and would like to go back to what she was on before. clm documented in this encounter Plan of Treatment Upcoming Encounters Date Type Department Care Team (Late st Contact Info) Description 07/05/2025 2:30 PM EST Office Visit [facility] [address] [place] [address] Taz Vazquez MD [address] [place] [phone] documented as of this encounter Visit Diagnoses Diagnosis Gastroesophageal reflux disease without esophagitis Esophageal reflux documented in this encounter Care Teams Relationship Management Lead Relationship Specialty Start Date End Date Taz Vazquez MD [address] [place] [place] [phone] PCP - General Family Medicine 07/11/23 documented as of this encounter
--- OUTSIDE RECORDS SUMMARY | 2025-01-20 09:16 | XMS_ITS | Clinical Summary ---
Author Organization [facility] Address [address] [place] [address] Care Team Providers Care Combining Machine Operator Name Role Phone Taz Vazquez MD Primary Care Provider [phone] Allergies Active Allergy Reactions Criticality Noted Date Comments Codeine 06/13/2023 Medications pravastatin (Pravachol) 40 MG tablet Take 40 mg by mouth 1 (one) time each day at the same time Active levothyroxine (Synthroid, Levoxyl) 75 MCG tabletIndicatio ns:Hypothyroidi sm, adult TAKE 2 TABLETS BY MOUTH on saturday, saturday and saturday 120 tablet 3 12/02/19 24 Active buPROPion XL (Wellbutrin XL) 300 MG 24 hr tabletIndicatio ns:MDD (major depressive disorder), recurrent episode, mild Take 1 tablet (300 mg) by mouth Daily 30 tablet 5 08/05/19 25 Active temazepam (Restoril) 15 MG capsuleIndicati ons:Primary insomnia Take 1 capsule (15 mg) by mouth as needed at bedtime for sleep 90 capsule 12/15/19 25 025 Active dicyclomine (Bentyl) 20 MG tabletIndicatio ns:Irritable bowel syndrome with diarrhea Take 1 tablet (20 mg) by mouth 4 (four) times a day as needed (abdominal pain or cramps) 30 tablet 2 12/30/19 25 Active HYDROcodone-monica taminophen ([place]) 5-325 MG tabletIndicatio ns:Lumbar spondylosis Take 1 tablet by mouth 4 (four) times a day as needed for severe pain 120 tablet 12/30/19 25 025 Active clomiPRAMINE (Anafranil) 50 MG capsuleIndicati ons:Chronic depressive disorder TAKE 2 CAPSULES BY MOUTH DAILY 60 capsule 11 01/08/20 25 Active famotidine (Pepcid) 40 MG tabletIndicatio ns:Gastroesopha geal reflux disease without esophagitis Take 1 tablet (40 mg) by mouth Daily 30 tablet 5 01/19/20 25 Active linaCLOtide (Linzess) 290 MCG capsule Take 290 mcg by mouth 1 (one) time each day at the same time 025 Discontinued Allergy Relief 10 MG tablet Take 1 tablet by mouth in the morning. 06/10/19 24 025 Discontinued clomiPRAMINE (Anafranil) 50 MG capsuleIndicati ons:Chronic depressive disorder Take 2 capsules (100 mg) by mouth Daily 60 capsule 11 12/24/19 24 025 Discontinued famotidine (Pepcid) 20 MG tabletIndicatio ns:Gastroesopha geal reflux disease without esophagitis Take 1 tablet (20 mg) by mouth Daily 30 tablet 5 11/25/19 25 025 Discontinued HYDROcodone-monica taminophen ([place]) 5-325 MG tabletIndicatio ns:Lumbar spondylosis Take 1 tablet by mouth 4 (four) times a day as needed for severe pain 120 tablet 12/09/19 25 025 Discontinued(Re order) omeprazole (PriLOSEC) [address] capsuleIndicati ons:Gastroesoph ageal reflux disease without esophagitis Take 1 capsule (40 mg) by mouth Daily before meals Do not crush or chew. 30 capsule 3 12/30/19 25 025 Discontinued Active Problems Problem Noted Date Diagnosed Date Adult hypothyroidism 12/29/2024 Encounter for long-term (current) use of medicat ions 12/29/2024 Benign essential hypertension 07/11/2023 Assessment & Plan (12/29/2024 3:40 PM EDT): BP elevated but previously controlled and monitor PRN. Assessment & Plan (07/11/2023 2:05 PM EST): BP controlled and monitor PRN. Intermittent claudication 07/11/2023 COPD (chronic obstructive pulmonary disease) 01/2024 Assessment & Plan (12/29/2024 3:40 PM EDT): No SOB and monitor. Senile dementia 07/11/2023 Dyslipidemia 07/11/2023 Nonalcoholic fatty liver 07/11/2023 HEIKE (generalized anxiety disorder) 07/11/2023 Assessment & Plan (12/29/2024 3:40 PM EDT): Symptoms tolerable with wellbutrin and continue. Assessment & Plan (07/11/2023 2:06 PM EST): Symptoms tolerable with wellbutrin and continue. Gastroesophageal reflux disease without esophagi tis 07/11/2023 Assessment & Plan (12/29/2024 3:40 PM EDT): Worsening symptoms and stop pepcid. Try omeprazole. Assessment & Plan (07/11/2023 2:06 PM EST): Symptoms controlled with pepcid and continue. MDD (major depressive disorder), recurrent episo de, mild 07/11/2023 Assessment & Plan (12/29/2024 3:41 PM EDT): Symptoms tolerable with wellbutrin and continue. Assessment & Plan (07/11/2023 2:06 PM EST): Symptoms tolerable with wellbutrin and continue. Primary insomnia 07/11/2023 Assessment & Plan (12/29/2024 3:41 PM EDT): Sleeping well with restoril and continue. Assessment & Plan (07/11/2023 2:06 PM EST): Sleeping well with restoril and continue. Irritable bowel syndrome with diarrhea Assessment & Plan (12/29/2024 3:41 PM EDT): Frequent symptoms and try bentyl PRN. Increase fiber. Tobacco user 06/13/2023 Class 1 obesity due to exces s calories with serious comorbidity and body mass index (BMI) of 34.0 to 34.9 in adult 06/13/2023 Urticaria 06/13/2023 Assessment & Plan (06/13/2023 10:32 AM EST): No acute distress, unknown exposure, no recent illness, no fever No joint aches Fu if not better Trial cool shower, hypoallergenic skin moisturizer prn Primary osteoarthritis of both knees 05/06/2023 Paresthesia of both feet 05/06/2023 Lumbar spondylosis 05/06/2023 Assessment & Plan (12/29/2024 3:41 PM EDT): Pain stable and continue home stretches and PT exercises. Use norco PRN. Assessment & Plan (07/11/2023 2:06 PM EST): Pain stable and continue home stretches and PT exercises. Use norco PRN. Resolved Problems Problem Noted Date Diagnosed Date Resolved Date Dermatitis 06/13/2023 07/11/2023 Encounters Date Type Department Care Team Description 01/18/2025 Telephone [facility] [address] [place] [phone] Taz Vazquez MD 01/07/2025 Refill [facility] [address] [place] [address] Taz Vazquez MD Chronic depressive disorder 12/29/2024 2:45 PM EDT Office Visit [facility] [address] [place] [phone] Taz Vazquez MD Benign essential hypertension (Primary Dx); Chronic obstructive pulmonary disease, unspecified COPD type (HCC); Irritable bowel syndrome with diarrhea; MDD (major depressive disorder), recurrent episode, mild ; HEIKE (generalized anxiety disorder) ; Gastroesophageal reflux disease without esophagitis; Primary insomnia; Adult hypothyroidism ; Class 1 obesity due to excess calories with serious comorbidity and body mass index (BMI) of 34.0 to 34.9 in adult; Encounter for long-term (current) use of medications; Dyslipidemia ; Lumbar spondylosis 12/29/2024 Bamboo flowsheet [facility] [address] [place] [phone] Taz Vazquez MD 12/14/2024 Refill [facility] [address] [place] [address] Taz Vazquez MD Primary insomnia 12/08/2024 Refill [facility] [address] [place] [address] Taz Vazquez MD Lumbar spondylosis 11/23/2024 Telephone [facility] [address] [place] [address] Taz Vazquez MD 11/10/2024 Refill [facility] [address] [place] [address] Taz Vazquez MD Lumbar spondylosis 11/07/2024 Refill [facility] [address] [place] [phone] Taz Vazquez MD Gastroesophageal reflux disease without esophagitis from Last 3 Months Family History Medical History Relation Name Comments Heart disease Father Hypertension Other siblings Relation Name Status Comments Father Mother Other siblings Social History Tobacco Use Types Packs/Day Years Used Date Smoking Tobacco: Every Day Cigarettes Smokeless Tobacco: Never Tobacco Cessation:Ready to Q uit: Not Asked; Counseling Given: Not Answered Comments:Started smoking : 39 years ; 11-20 cigs/day Alcohol Use Standard [...] Sign Reading Time Taken Comments Blood Pressure 150/100 12/29/2024 2:58 PM EDT Pulse 85 12/29/2024 2:58 PM EDT Temperature 35.9 C (96.6 F) 12/29/2024 2:58 PM EDT Respiratory Rate 22 12/29/2024 2:58 PM EDT Oxygen Saturation 93% 12/29/2024 2:58 PM EDT Inhaled Oxygen Concentration - - Weight 78 kg (172 lb) 12/29/2024 2:58 PM EDT Height 149.9 cm (4' 11 ) 12/29/2024 2:58 PM EDT Body Mass Index 34.74 12/29/2024 2:58 PM EDT Plan of Treatment Upcoming Encounters Date Type Department Care Team (Late st Contact Info) Description 07/05/2025 2:30 PM EST Office Visit [facility] [address] [place] [phone] Taz Vazquez MD [address] [place] [phone] Health Maintenance Due Date Last Done Comments CT Colonography 1955 Colonoscopy 1955 Colorectal Cancer Screening 1955 FIT-DNA 1955 FIT 1955 FOBT 1955 Sigmoidoscopy 1955 Pneumococcal Vaccine: 65+ Ye ars (2 of 2 - PPSV23) 05/15/2016 03/20/2016, 02/09/2016 Mammogram 02/16/2021 02/17/2020, 12/02/2018 Medicare Annual Wellness (AWV) 02/08/2023 0 02/08/2022, 05/20/2017, 04/10/2016, Additional history exists Influenza Vaccine (#1) 2025 05/17/2022 Insurance [employer] MEDICARE Care Teams Combining Machine Operator Relationship Specialty Start Date End Date Taz Vazquez MD [address] [place] [address] PCP - General Family Medicine 07/11/23
--- OUTSIDE RECORDS SUMMARY | 2025-01-20 09:16 | XMS_ITS | Encounter Summary ---
Author Organization [facility] Address [address] [facility] [place] [address] Care Team Providers Care Stretching Press Operator Name Role Phone Taz Vazquez MD Primary Care Provider [phone] Reason for Visit * Reason Comments Med Refill Encounter Details Date Type Department Care Team (Late Contact Info) Description 01/07/2025 Refill [facility] [address] [place] [address] Taz Vazquez MD [address] [facility] [place] [address] Chronic depressive disorder Social History Tobacco Use Types Packs/Day Years [...] encounter Miscellaneous Notes * Telephone Encounter - DELMA DHILLON - 01/07/2025 12:44 PM EDT MEDICATION SENT TO [facility] documented in this encounter Plan of Treatment Upcoming Encounters Date Type Department Care Team (Late Contact Info) Description 07/05/2025 2:30 PM EST Office Visit [facility] [address] [place] [address] Taz Vazquez MD [address] [place] [address] documented as of this encounter Visit Diagnoses Diagnosis Chronic depressive disorder Chronic depressive personality disorder documented in this encounter Care Teams Stretching Press Operator Relationship Specialty Start Date End Date Taz Vazquez MD [address] [place] [address] PCP - General Family Medicine 07/11/23 documented as of this encounter
--- OUTSIDE RECORDS SUMMARY | 2025-01-20 09:16 | XMS_ITS | Encounter Summary ---
Author Organization [facility] Address [address] [facility] [place] [address] Care Team Providers Care Lightning Rod Erector Name Role Phone Taz Vazquez MD Primary Care Provider [phone] Encounter Details Date Type Department Care Team ([facility] Contact Info) Description 01/13/2024 [facility] [address] [place] [phone] Taz Vazquez MD [address] [place] [address] Social History Tobacco Use Types Packs/Day Years [...] on file documented as of this encounter Plan of Treatment Upcoming Encounters Date Type Department Care Team ([facility] Contact Info) Description 07/05/2025 2:30 PM EST Office Visit [facility] [address] [place] [phone] Taz Vazquez MD [address] [place] [address] documented as of this encounter Visit Diagnoses Not on filedocumented in this encounter Care Teams Lightning Rod Erector Relationship Specialty Start Date End Date Tza Vazquez MD [address] [place] [address] PCP - General Family Medicine 07/11/23 documented as of this encounter
--- OUTSIDE RECORDS SUMMARY | 2025-01-20 09:16 | XMS_ITS | Clinical Summary ---
Author Organization [facility] Address [id number] [address] [id number] Care Team Providers Care Underground Electrician Name Role Phone Unavailable Primary Care Provider Unavailabl e Social History Tobacco Use Types Packs/Day Years Used Date Smoking Tobacco: Never Assessed Childcare Answer Date Recorded Childcare Unknown 11/12/2018 Employment Answer Date Recorded Employment Unknown 11/12/2018 Comments Unknown Sex and Gender Information Value Date Recorded Sex Assigned at Not on file Legal Sex Female 11:28 AM EDT Gender Identity Not on file Sexual Orientation Not on file Plan of Treatment Not on file Medical Devices Not on file
--- OUTSIDE RECORDS SUMMARY | 2025-01-20 09:17 | XMS_ITS | CCD ---
Author Organization [facility] Care Team Providers Care Caterer'S Aide Name Role Phone Shirley JUAN, Taz uBrch Primary Care Provider DEBBY, DR HARRIET Mathis Admitting Unavailable HEDGEBrendon, DR HARRIET Mathis Attending Unavailable SHIRLEY, DR TAZ Muniz Primary Care Unavailable TRIDELL, DR EMI Oconnor Consulting Unavailable HEDGES, DR HARRIET Mathis Consulting Unavailable DEBBY, HARRIET Mathis Referring Unavailable SHIRLEY, TAZ BURCH Primary Care UnavailHARRIET Lyman Referring Unavailable SHIRLEY, TAZ BURCH Primary Care Unavailtatiana Watson MD, Taz Primary Care Provider TAZ WATSON Attending Unavailable Allergies Allergy Classification Reported Allergen(s) Allergy Type Date of Onset Reaction(s) Facility (18 sources) Codeine Drug Allergy 4 [facility] [employer] (1 source) rofecoxib Drug Allergy 6 [employer] Work Phone: (1 source) Morphine And Related Propensity to adverse reactions to drug 6 [employer] Work Phone: (1 source) Codeine Drug Allergy 6 [facility] Repository Medications Current Medications Medication Drug Class(es) Dates Sig (Normalized) Sig (Original) aspirin 81 mg oral tablet (1 source) Platelet Aggregation Inhibitor, Nonsteroidal Anti-inflammatory Drug take 1 tablet by mouth once daily aspirin 81 MG tablet Indications: Routine gynecological examination Take 81 mg by mouth daily. 0 Active baclofen 10 mg oral tablet (1 source) gamma-Aminobutyric Acid-ergic Agonist Start: 02-08-2015 baclofen (LIORESAL) 10 MG tablet 24 hr buPROPion hydrochloride 300 mg extended release oral tablet (19 sources) Aminoketone Start: 08-04-2024 take 1 tablet by mouth once daily buPROPion XL (Wellbutrin XL) 300 MG 24 hr tablet Indications: MDD (major depressive disorder), recurrent episode, mild Take 1 tablet (300 mg) by mouth Daily 30 tablet 5 08/04/2024 Active Start: 01-15-2024 End: 07-13-2024 take 1 tablet by mouth once daily buPROPion XL (Wellbutrin XL) 300 MG 24 hr tablet Indications: MDD (major depressive disorder), recurrent episode, mild (HCC) (CMS/HCC) Take 1 tablet (300 mg) by mouth Daily 30 tablet 5 07/13/2024 Active Start: 02-10-2015 buPROPion (WEL LBUTRIN XL) 300 MG XL tablet clomiPRAMINE hydrochloride 50 mg oral capsule (18 sources) Tricyclic Antidepressant Start: 12-24-2023 End: 12-23-2024 take 2 capsules by mouth once daily clomiPRAMINE (Anafranil) 50 MG capsule Indications: Chronic depressive disorder Take 2 capsules (100 mg) by mouth Daily 60 capsule 11 12/24/2023 Active take 2 capsules by mouth in the morning clomiPRAMINE (Anafranil) 50 MG capsule Take 100 mg by mouth in the morning. 0 Active take 1 capsule by mouth once oscar ly clomiPRAMINE (ANAFRANIL) 50 MG capsule Indications: Routine gynecological examination Take 50 mg by mouth nightly. 0 Active dicyclomine hydrochloride 20 mg oral tablet (2 sources) Anticholinergic Start: 12-29-2024 take 1 tablet by mouth four times daily as needed for pain dicyclomine (Bentyl) 20 MG tablet Indications: Irritable bowel syndrome with diarrhea Take 1 tablet (20 mg) by mouth 4 (four) times a day as needed (abdominal pain or cramps) 30 tablet 2 12/29/2024 Active levothyroxine sodium 0.075 mg oral tablet (18 sources) l-Thyroxine Start: 12-02-2023 levothyroxine (Synthroid, Levoxyl) 75 MCG tablet Indications: Hypothyroidism, adult TAKE 2 TABLETS BY MOUTH on saturday, saturday and saturday 120 tablet 3 12/02/2023 Active Start: 10-06-2013 levothyroxine (SYNTHROID) 75 MCG tablet levothyroxine (S ynthroid, Levoxyl) 75 MCG tablet 25 mcg 0 Active linaclotide 0.29 mg oral capsule (18 sources) Guanylate Cyclase-C Agonist Start: 04-06-2016 End: 12-29-2024 take 1 capsule by mouth once daily LINZESS 290 MCG CAPS capsule TAKE 1 CAPSULE BY MOUTH DAILY 5 04/06/2016 Active omeprazole 40 mg delayed release oral capsule (2 sources) Proton Pump Inhibitor Start: 12-29-2024 take 1 capsule by mouth once daily before mealtime omeprazole (PriLOSEC) [address] capsule Indications: Gastroesophageal reflux disease without esophagitis Take 1 capsule (40 mg) by mouth Daily before meals Do not crush or chew. 30 capsule 3 12/29/2024 Active pravastatin sodium 40 mg oral tablet (18 sources) HMG-CoA Reductase Inhibitor Start: 10-06-2013 pravastatin (PRAVACHOL) 40 MG tablet temazepam 15 mg oral capsule (20 sources) Benzodiazepine Start: 06-04-2024 End: 03-14-2025 temazepam (Restoril) 15 MG capsule Indications: Primary insomnia Take 1 capsule (15 mg) by mouth as needed at bedtime for sleep 90 capsule 12/14/2024 03/14/2025 Active Start: 03-03-2024 End: 06-01-2024 temazepam (Restoril) 15 MG c apsule Indications: Primary insomnia Take 1 capsule (15 mg) by mouth as needed at bedtime for sleep 90 capsule 03/03/2024 06/01/2024 Active Start: 11-29-2023 End: 02-27-2024 temazepam (Restoril) 15 MG c apsule Indications: Primary insomnia Take 1 capsule (15 mg) by mouth as needed at bedtime for sleep 90 capsule 11/29/2023 02/27/2024 Active Start: 05-31-2023 End: 08-29-2023 temazepam (Restoril) 15 MG c apsule Indications: Primary insomnia Take 1 capsule (15 mg) by mouth as needed at bedtime for sleep 90 capsule 0 05/31/2023 08/29/2023 Active Start: 03-15-2016 temazepam (RES TORIL) 15 MG capsule Completed/Discontinued Medications Medication Drug Class(es) Dates Sig (Normalized) Sig (Original) acetaminophen 325 mg / HYDROcodone bitartrate 5 mg oral tablet (20 sources) Opioid Agonist Start: 07-13-2024 End: 01-28-2025 take 1 tablet by mouth four times daily as needed for pain HYDROcodone-acetami nophen ([place]) 5-325 MG tablet Indications: Lumbar spondylosis Take 1 tablet by mouth 4 (four) times a day as needed for severe pain 120 tablet 12/08/2024 12/29/2024 Discontinued (Reorder) Start: 01-13-2024 End: 05-10-2024 take 1 tablet by mouth four times daily as needed for pain HYDROcodone-acetaminophen ([place]) 5-325 MG tablet Indications: Lumbar spondylosis Take 1 tablet by mouth 4 (four) times a day as needed for severe pain 120 tablet 04/10/2024 05/10/2024 Active Start: 06-18-2023 End: 07-17-2023 take 1 tablet by mouth four times daily as needed for pain HYDROcodone-acetaminophen ([place]) 5-325 MG tablet Indications: Lumbar spondylosis Take 1 tablet by mouth 4 (four) times a day as needed for severe pain 120 tablet 0 07/17/2023 Active cetirizine hydrochloride 10 mg oral tablet (2 sources) Histamine-1 Receptor Antagonist Start: 06-13-2023 End: 07-11-2023 take 1 tablet by mouth in the morning cetirizine (ZyrTEC) 10 MG tablet Indications: Dermatitis Take 1 tablet (10 mg) by mouth in the morning for 15 days. 15 tablet 0 06/13/2023 07/11/2023 Discontinued famotidine 20 mg oral tablet (20 sources) Histamine-2 Receptor Antagonist Start: 11-24-2024 End: 12-29-2024 take 1 tablet by mouth once daily famotidine (Pepcid) 20 MG tablet Indications: Gastroesophageal reflux disease without esophagitis Take 1 tablet (20 mg) by mouth Daily 30 tablet 5 11/24/2024 12/29/2024 Discontinued Start: 11-09-2024 take 1 tablet by andrea th once daily famotidine (Pepcid) 20 MG tablet Indications: Gastroesophageal reflux disease without esophagitis TAKE 1 TABLET BY MOUTH ONCE DAILY 30 tablet 5 11/09/2024 Active Start: 05-12-2024 take 1 tablet by andrea th once daily famotidine (Pepcid) 20 MG tablet Indications: Gastroesophageal reflux disease without esophagitis TAKE 1 TABLET BY MOUTH DAILY 30 tablet 5 05/12/2024 Active Start: 11-04-2023 take 1 tablet by andrea th once daily famotidine (Pepcid) 20 MG tablet Indications: Gastroesophageal reflux disease without esophagitis Take 1 tablet (20 mg) by mouth Daily 30 tablet 5 11/04/2023 Active Start: 10-06-2013 End: 07-11-2023 take 1 tablet [...] 1 (one) time 0 06/07/2023 07/11/2023 Discontinued loratadine 10 mg oral tablet (17 sources) Start: 06-10-2023 End: 12-29-2024 take 1 tablet by mouth in the morning Allergy Relief 10 MG tablet Take 1 tablet by mouth in the morning. 06/10/2023 12/29/2024 Discontinued predniSONE 20 mg oral tablet (2 [...] Classification Problem Date Documented Da te Episodic/Chronic Anxiety disorders (20 sources) Generalized anxiety disorder; Translations: [Generalized anxiety disorder] Onset: 4 07-11-2023 Chronic Chronic obstructive pulmonary disease and bronchiectasis (19 sources) Chronic obstructive lung disease; Translations: [Chronic obstructive pulmonary disease, unspecified] Onset: 4 07-11-2023 Chronic Delirium, dementia, and amnestic and other cognitive disorders (17 sources) Senile dementia; Translations: [Unspecified dementia without behavioral disturbance] Onset: 4 07-11-2023 Chronic Disorders of lipid metabolism (19 sources) Dyslipidemia; Translations: [Hyperlipidemia, unspecified] Onset: 4 07-11-2023 Chronic Esophageal disorders (20 sources) Gastroesophageal reflux disease without esophagitis; Translations: [Gastro-esophageal reflux disease without esophagitis] Onset: 4 07-11-2023 Chronic Essential hypertension (20 sources) Benign essential hypertension; Translations: [Essential (primary) hypertension] Onset: 4 07-11-2023 Chronic Menopausal disorders (1 source) Postmenopausal bleeding; Translations: [Postmenopausal bleeding] Onset: 2 Chronic Miscellaneous mental health disorders (20 sources) Primary insomnia; Translations: [Primary insomnia] Onset: 4 07-11-2023 Chronic Mood disorders (20 sources) Recurrent major depressive episodes, mild ; Translations: [Major depressive disorder, recurrent, mild] Onset: 4 07-11-2023 Chronic Osteoarthritis (17 sources) Primary gonarthrosis, bilateral; Translations: [Bilateral primary osteoarthritis of knee] Onset: 3 05-06-2023 Chronic Other aftercare (4 sources) Long-term current use of drug therapy; Translations: [Other assisted (current) drug therapy] Onset: 5 12-29-2024 Episodic Other gastrointestinal disorders (19 sources) Irritable bowel syndrome with diarrhea; Translations: [Irritable bowel syndrome with diarrhea] Onset: 4 07-11-2023 Chronic Other liver diseases (9 sources) Non-alcoholic fatty liver; Translations: [Fatty (change of) liver, not elsewhere classified] Onset: 4 07-11-2023 Chronic Other liver diseases (8 sources) Non-alcoholic fatty liver disease without non-alcoholic steatohepatitis; Translations: [Fatty (change of) liver, not elsewhere classified] Onset: 4 07-11-2023 Chronic Other nutritional; endocrine; and metabolic disorders (15 sources) Body mass index 30+ - obesity; Translations: [Body mass index (BMI) 35.0-35.9, adult] Onset: 4 06-13-2023 Chronic Other nutritional; endocrine; and metabolic disorders (4 sources) Obesity caused by energy imbalance; Translations: [Class 1 obesity due to excess calories with serious comorbidity and body mass index (BMI) of 34.0 to 34.9 in adult] Onset: 4 12-29-2024 Chronic Peripheral and visceral atherosclerosis (17 sources) Intermittent claudication; Translations: [Peripheral vascular disease, unspecified] Onset: 4 07-11-2023 Chronic Spondylosis; intervertebral disc disorders; other back problems (20 sources) Lumbar spondylosis; Translations: [Spondylosis without myelopathy or radiculopathy, lumbar region] Onset: 3 07-11-2023 Chronic Thyroid disorders (4 sources) Hypothyroidism; Translations: [Hypothyroidism, unspecified] Onset: 5 12-29-2024 Chronic Past or Other Problems Problem Classification Problem Date Documented Da te Episodic/Chronic Allergic reactions (20 sources) Urticaria; Translations: [Urticaria, unspecified] Onset: 06-13-2023 Resolved: 07-11-2023 06-13-2023 Episodic Other nervous system disorders (17 sources) Paresthesia of foot ; Translations: [Paresthesia of skin] Onset: 05-06-2023 05-06-2023 Episodic Residual codes; unclassified (17 sources) Tobacco user; Translations: [Tobacco use] Onset: 06-13-2023 06-13-2023 Episodic Sprains and strains (1 source) Neck sprain; Translations: [Sprain of joints and ligaments of unspecified parts of neck, initial encounter] Onset: 01-31-2004 05-20-2017 Episodic Results Test Name Value Interpretation Reference Range [facility] Surgical Pathologyon 04-25-2 022 Surgical Pathology (NOTE) -- Diagnosis -- ENDOMETRIUM, BIOPSY: -SCANT FRAGMENTS OF BENIGN COLUMNAR AND SQUAMOUS EPITHELIUM -SEE COMMENT -- Diagnosis Comment -- Within the observed sections there is no intact endometrial mucosa present for evaluation. The specimen is consistent with that obtained from an atrophic type endometrium, however, clinical correlation is required. Ayush De La Torre D.O. Electronically Signed [facility]04/30/2022 Clinical Information Pre-op Diagnosis: PMB Operative Findings: ENDOMETRIAL BX Source of Specimen A: ENDOMETRIAL BX Gross Description ASHLEY BAPTISTE, UNDESIGNATED Clear to white mucinous fragments, 1.0 x 0.5 x 0.2 cm in aggregate. Entirely 1cs. jg tm Microscopic Description Microscopic examination performed. SURGICAL PATHOLOGY CONSULTATION Patient Name: ASHLEY BAPTISTE Med Rec: [id number] Path Number: [id number] [facility] [employer] [facility] ANATOMIC PATHOLOGY [address] [place] [phone] [facility] Comment on above: Performed By: #### P PPVS #### [address] [id number] Stove Carriage Operator: Ward Tellez MD MG MAMM SCREEN 3D SG CADon 03-14-2022 MG MAMM SCREEN 3D SG CAD Patient: ASHLEY BAPTISTE Exam Date: 03/14/2022 : 1955 Gender:F Ordering : DR HARRIET GUARDADO Admission #: [id number] Family : Order #: [id number] CLICK HERE TO VIEW EXAM RADIOLOGY REPORT [...] with breast cancer at age 57. LOCATION: [facility] BREAST COMPOSITION: Scattered areas fibroglandular density. [...] Merritt MD on 03/14/2022 at 14:44 Normal [facility] Cytologyon 02-08-2022 Cytology (NOTE) INTERPRETATION Cervical material, (ThinPrep vial, Imaging-assisted review): Specimen Adequacy: Satisfactory for evaluation. Descriptive Diagnosis: Negative for intraepithelial lesion or malignancy. Cloth Piecer: VALERY STEVENS(ASCP) Electronically Signed Out /02/15/2022 Source: A: Cervical material, (ThinPrep vial, Imaging-assisted review) Clinical History Postmenopausal Z01.419 Routine freelance designer exam without abnormal findings High risk HPV DNA testing is requested if the diagnosis is abnormal GYNECOLOGIC CYTOLOGY REPORT Patient Name: ASHLEY BAPTISTE [facility] Rec: [id number] Path Number: [id number] [employer] [facility] ANATOMIC PATHOLOGY [address] [place] [phone] [facility] Comment on above: Performed By: #### P PPVP #### [employer] [address] [place] [id number] [employer] Car[employer] Operator: Ward Tellez MD Vital Signs Date Time Vital Sign Value Performing Clinician Kimbrely szymanski 12-29-2024 14:58-0400 Body height 149.9 cm Taz Watson MD Work Phone: [facility] 12-29-2024 14:58-0400 Body mass index (BMI) [Ratio] 34.74 kg/m2 Taz Watson MD Work Phone: [facility] 12-29-2024 14:58-0400 Body temperature 96.6 [degF] Taz Watson MD Work Phone: [facility] 12-29-2024 14:58-0400 Body weight 78.02 kg Taz Watson MD Work Phone: [facility] 12-29-2024 14:58-0400 Diastolic blood pressure 100 mm[Hg] Taz Watson MD Work Phone: [facility] 12-29-2024 14:58-0400 Heart rate 85 /min Taz Watson MD Work Phone: [facility] 12-29-2024 14:58-0400 Respiratory rate 22 /min Taz Watson MD Work Phone: [facility] 12-29-2024 14:58-0400 SaO2% (BldA) [Mass fraction] 93 % Taz Watson MD Work Phone: [facility] 12-29-2024 14:58-0400 Systolic blood pressure 150 mm[Hg] Taz Watson MD Work Phone: [facility] 07-11-2023 13:34-0500 Body height 149.9 cm Taz Watson MD Work Phone: [facility] 07-11-2023 13:34-0500 Body mass index (BMI) [Ratio] 35.55 kg/m2 Taz Watson MD Work Phone: [facility] 07-11-2023 13:34-0500 Body temperature 96.21 [degF] Taz Watson MD Work Phone: [facility] 07-11-2023 13:34-0500 Body weight 79.83 kg Taz Watson MD Work Phone: [facility] 07-11-2023 13:34-0500 Diastolic blood pressure 80 mm[Hg] Taz Waston MD Work Phone: [facility] 07-11-2023 13:34-0500 Heart rate 93 /min Taz Watson MD Work Phone: [facility] 07-11-2023 13:34-0500 SaO2% (BldA) [Mass fraction] 92 % Taz Watson MD Work Phone: [facility] 07-11-2023 13:34-0500 Systolic blood pressure 140 mm[Hg] Taz Watson MD Work Phone: [facility] Healthcare Encounters Encounter Date Encounter Type Care Provider Facility Start: 12-29-2024 End: 12-29-2024 Office outpatient visit 25 minutes Taz Watson MD Work Phone: [facility] Comment on above: Benign essential hyp ertension (Primary Dx); Chronic obstructive pulmonary disease, unspecified [...] use of medications; Dyslipidemia ; Lumbar spondylosis Start: 12-29-2024 End: 12-29-2024 ambulatory TAZ WATSON Not Available Start: 12-29-2024 End: 12-29-2024 Bamboo flowsheet Taz Watson MD Work Phone: [facility] Start: 12-29-2024 End: 12-29-2024 Bamboo flowsheet Taz Watson MD Work Phone: [facility] Start: 12-14-2024 End: 12-14-2024 Refill Taz Watson MD Work Phone: [facility] Comment on above: Primary insomnia Start: 12-08-2024 End: 12-08-2024 Refill Taz Watson MD Work Phone: [facility] Comment on above: Lumbar spondylosis Start: 11-10-2024 End: 11-10-2024 Refill Taz Watson MD Work Phone: [facility] Comment on above: Lumbar spondylosis Start: 10-05-2024 End: 10-05-2024 Refill Taz Watson MD Work Phone: [facility] Comment on above: Lumbar spondylosis Start: 09-07-2024 End: 09-07-2024 Refill Taz Watson MD Work Phone: [facility] Comment on above: Primary insomnia; Lumbar spondylosis Start: 08-10-2024 End: 08-10-2024 Refill Taz Watson MD Work Phone: [facility] Comment on above: Lumbar spondylosis Start: 07-13-2024 End: 07-13-2024 Refill Taz Watson MD Work Phone: [facility] Comment on above: MDD (major depressiv e disorder), recurrent episode, mild (HCC) (CMS/HCC); Lumbar spondylosis Start: 04-10-2024 End: 04-10-2024 Refill Taz Watson MD Work Phone: [facility] Comment on above: Lumbar spondylosis Start: 03-16-2024 End: 03-16-2024 Refill Taz Watson MD Work Phone: [facility] Comment on above: Lumbar spondylosis Start: 03-03-2024 End: 03-03-2024 Refill Taz Watson MD Work Phone: [facility] Comment on above: Primary insomnia Start: 02-10-2024 End: 02-10-2024 Refill Taz Watson MD Work Phone: [facility] Comment on above: Lumbar spondylosis Start: 07-17-2023 Refill Staci Maguire [facility] Comment on above: Lumbar spondylosis Start: 07-11-2023 End: 07-11-2023 Office outpatient visit 25 minutes Taz Watson MD Work Phone: [facility] Comment on above: Benign essential hyp ertension (CMS/HCC) (Primary Dx); Lumbar spondylosis; MDD (major depressive disorder), recurrent episode, mild (HCC) (CMS/HCC); HEIKE (generalized anxiety disorder) (CMS/HCC); Primary insomnia; Gastroesophageal reflux disease without esophagitis Start: 04-25-2022 End: 04-26-2022 ambulatory HARRIET GUARDADO [facility] Start: 03-14-2022 End: 03-15-[address] HARRIET GUARDADO Facility:[facility] Start: 02-08-2022 End: 02-09-2022 [facility] Start: 02-08-2022 Encounter for gynecological examination (general) (routine) without abnormal findings [facility] Start: 02-08-2022 End: 02-08-2022 Patient encounter procedure Taz Watson MD Work Phone: [facility] Start: 02-08-2022 End: 02-08-2022 Subsequent hospital visit by physician Taz Watson MD Work Phone: [facility] Comment on above: Women's annual routi ne gynecological examination Procedures Date Procedure Procedure Detail Performing Clinician Start: 02-17-2020 Mammography Taz garcia MD Work Phone: Plan of Treatment Date Care Activity Detail Author Start: 07-05-2025 End: 07-05-2025 Patient encounter procedure 07/05/2025 2:30 PM EST Office Visit [facility] [address] [place] [phone] Taz Watson MD [address] [place] [phone] [facility] Start: 02-01-2025 Influenza vaccination [facility] Start: 12-29-2024 End: 12-29-2024 Patient encounter procedure [facility] Comment on above: Arrived Start: 12-29-2024 End: 12-29-2025 Basic metabolic 1998 panel - Serum or Plasma Basic metabolic panel Lab Routine Encounter for long-term (current) use of medications Expected: 12/29/2024 (Approximate), Expires: 12/29/2025 [facility] Healthcare Comment on above: Expected: 12/29/2024 (Approximate), Expires: 12/29/2025 Start: 12-29-2024 End: 12-29-2025 CBC W Auto Differential panel - Blood CBC and differential Lab Routine Encounter for long-term (current) use of medications Expected: 12/29/2024 (Approximate), Expires: 12/29/2025 [facility] Comment on above: Expected: 12/29/2024 (Approximate), Expires: 12/29/2025 Start: 12-29-2024 End: 12-29-2025 Hemoglobin A1c/Hemoglobin.total in Blood Hemoglobin A1c Lab Routine Class 1 obesity due to excess calories with serious comorbidity and body mass index (BMI) of 34.0 to 34.9 in adult Expected: 12/29/2024 (Approximate), Expires: 12/29/2025 [facility] Work Phone: Comment on above: Expected: 12/29/2024 (Approximate), Expires: 12/29/2025 Start: 12-29-2024 End: 12-29-2025 Hepatic function 2000 panel - Serum or Plasma Hepatic function panel Lab Routine Encounter for long-term (current) use of medications Expected: 12/29/2024 (Approximate), Expires: 12/29/2025 [facility] Comment on above: Expected: 12/29/2024 (Approximate), Expires: 12/29/2025 Start: 12-29-2024 End: 12-29-2025 Lipid 1996 panel - Serum or Plasma Lipid panel Lab Routine Dyslipidemia Expected: 12/29/2024 (Approximate), Expires: 12/29/2025 [facility] Comment on above: Expected: 12/29/2024 (Approximate), Expires: 12/29/2025 Start: 12-29-2024 End: 12-29-2025 Thyrotropin [Units/volume] in Serum or Plasma TSH Lab Routine Adult hypothyroidism Expected: 12/29/2024 (Approximate), Expires: 12/29/2025 [facility] Comment on above: Expected: 12/29/2024 (Approximate), Expires: 12/29/2025 Start: 12-29-2024 End: 12-29-2025 Thyroxine (T4) free [Mass/volume] in Serum or Plasma T4, free Lab Routine Adult hypothyroidism Expected: 12/29/2024 (Approximate), Expires: 12/29/2025 [facility] Comment on above: Expected: 12/29/2024 (Approximate), Expires: 12/29/2025 Start: 11-16-2024 End: 11-16-2024 Patient encounter procedure 11/16/2024 2:15 PM EDT Office [facility] [address] [place] [phone] Taz Watson MD [address] [place] [phone] [facility] Start: 02-02-2024 Influenza vaccination Influenza Vacc ine (#1) [facility] Start: 01-06-2024 End: 01-06-2024 Patient encounter procedure 01/06/2024 2:15 PM EDT Office Visit [facility] [address] [place] [phone] Taz Watson MD [address] [place] [phone] [facility] Start: 02-08-2023 Medicare Annual Wellness (AWV) Medicare Annual Wellness (AWV) [facility] Healthcare Start: 02-01-2023 Influenza vaccination Influenza Vacc ine (#1) [facility] Start: 02-16-2022 Screening for malign ant neoplasm of breast Breast cancer screen [facility] Start: 02-01-2022 Influenza vaccination Flu vaccine (# 1) [facility] Start: 09-18-2021 COVID-19 Vaccine (4 - Booster for Pfizer series) COVID-19 Vaccine (4 - Booster for Pfizer series) [facility] Start: 02-16-2021 Screening for malign ant neoplasm of breast Mammogram [facility] Start: 03-20-2017 Pneumococcal 65+ yea rs Vaccine (2 - PPSV23 or PCV20) Pneumococcal 65+ years Vaccine (2 - PPSV23 or PCV20) [facility] Start: 05-15-2016 Pneumococcal Vaccine : 65+ Years (2 - PPSV23 or PCV20) Pneumococcal Vaccine: 65+ Years (2 - PPSV23 or PCV20) [facility] [facility] Start: 05-15-2016 Pneumococcal Vaccine : 65+ Years (2 of 2 - PPSV23 or PCV20) Pneumococcal Vaccine: 65+ Years (2 of 2 - PPSV23 or PCV20) [facility] Start: 05-15-2016 Pneumococcal Vaccine : 65+ Years (2 of 2 - PPSV23) Pneumococcal Vaccine: 65+ Years (2 of 2 - PPSV23) [facility] Start: 04-19-2015 Shingles vaccine (2 of 3) Shingles vaccine (2 of 3) [facility] Start: 2009 Screening for osteoporosis DEXA (modify frequency per FRAX score) [facility]: 2004 Screening for malign ant neoplasm of lung Low dose CT lung screening [facility] [employer] Start: 11-21-1999 Screening for malign ant neoplasm of colon [facility] [employer] Start: 1989 Diabetes screen Diabetes screen [facility] Start: 1973 DTaP/Tdap/Td vaccine (1 - Tdap) DTaP/Tdap/Td vaccine (1 - Tdap) [facility] Start: 1972 Hepatitis C screening Hepatitis C sc reen [facility] Start: 1966 Depression Screen Depression Screen [facility] [employer] Start: 1964 Lipid panel [facility] [employer] Start: 1954 Screening for malign ant neoplasm of colon [facility] End: 02-08-2022 Cytopathology procedure, preparation of smear, genital source [facility] Lab Routine Women's Annual Routine Gynecological Examination 1 Occurrences starting 02/08/2022 until 02/08/2022 [facility] [employer] Work Phone: Comment on above: 1 Occurrences starti ng 02/08/2022 until 02/08/2022 Immunizations Immunization Date Immunization Notes Care Provider [facility] 05-17-2022 influenza virus vaccine, unspecified formulation Taz Watson MD Work Phone: [facility] 03-20-2016 pneumococcal conjuga te vaccine, 13 valalexa Watson MD Work Phone: [facility] Work Phone: 02-09-2016 pneumococcal conjuga te vaccine, 13 valent Taz Watson MD Work Phone: [facility] Work Phone: 02-22-2015 zoster vaccine, live Taz laguerre MD Work Phone: [facility] Work Phone: Payers Date Payer Category Payer Medicare [employer] UHC MEDICARE ADVANTAGE [id number] 2023-Present [address] [address] [place] [address] [id number] 2023 Medicare (Managed Care) [id number] 2021 Medicaid [employer]ICA[employer]ICAID [place] [id number] 2021-Present [address] [place] [address] [id number] 2017 Medicare [id number] 1959 Medicaid [id number] 1954 Unknown [id number] 1954 Unknown [id number] 1954 Unknown [id number] 1954 Unknown [id number] Social History Date Type Detail Facility Start: 05-20-2017 End: 07-02-2023 Tobacco smoking status OH[facility] Smokes tobacco daily [employer] Phone: History of tobacco use Cigarette Smoker [employer] Phone: Start: 05-20-2017 End: 12-29-2024 Cigarettes smoked current (pack per day) - Reported 1 [employer] Phone: Start: 05-20-2017 End: 07-02-2023 Tobacco use and exposure Smokeless tobacco non-user [employer] Phone: Start: 02-08-2022 Alcohol intake Current non-dr slinger sequins of alcohol (finding) [facility] Phone: Start: 1955 Sex Assigned At Not on file [employer] Phone: Start: 07-11-2023 End: 12-29-2024 Alcohol intake Ex-drinker (finding) [facility] Start: 07-11-2023 End: 12-29-2024 Tobacco use panel [facility] Start: 07-02-2023 Tobacco Comment Started smokin g : 39 years ; 11-20 cigs/day [facility] Start: 07-02-2023 Alcohol Comment caffine:soda 4 times daily; 3-4 cups per day [facility] Clinical Notes 07-11-2023 to 12-29-2024 Taz Watson MD - 12/29/2024 3:41 PM EDYuni Watson MD - 12/29/2024 3:41 PM Vani Watson MD - 12/29/2024 3:41 PM EDTMstephen Watson MD - 12/29/2024 3:41 PM EDT Note Date & Type Note Facility 12-29-2024 History of Presen t illness Narrative Associated Problem(s): Primary insomnia Sleeping well with restoril and continue. Associated Problem(s): MDD (major depressive disorder), recurrent episode, mild Symptoms tolerable with wellbutrin and continue. Associated Problem(s): Lumbar spondylosis Pain stable and continue home stretches and PT exercises. Use norco PRN. Associated Problem(s): Irritable bowel syndrome with diarrhea Frequent symptoms and try bentyl PRN. Increase fiber. Associated Problem(s): Gastroesophageal reflux disease without esophagitis Worsening symptoms and stop pepcid. Try omeprazole. Associated Problem(s): HEIKE (generalized anxiety disorder) Symptoms tolerable with wellbutrin and continue. Associated Problem(s): COPD (chronic obstructive pulmonary disease) (HCC) No SOB and monitor. Associated Problem(s): Benign essential hypertension BP elevated but previously controlled and monitor PRN. Images from the original note were not included. Subjective Patient ID: Ashley Baptiste is a 69 y.o. female who presents for Follow-up (Check up), Diarrhea (Every time she eats), and GI Problem. Follow up HTN, back pain, depression, anxiety, insomnia, and GERD. Patient stable not doing well today. C/o GI symptoms and frequent diarrhea. No longer having constipation. Every time she eats will have to have BM about 30 minutes later. Frequent cramping and relieved with BM. Occasional urgency. Watery stool but no blood. Severe GERD. Frequent epigastric pain and burning after eating. Severe discomfort and pepcid not helping. Checking BP PRN and typically controlled. BP elevated today but very nervous. Not taking medication and BP remains controlled. [...] stay asleep. Wakes up rested in am. Diarrhea Pertinent negatives include no abdominal pain, coughing or vomiting. GI Problem The primary symptoms include diarrhea. Primary symptoms do not include abdominal pain, nausea, vomiting or dysuria. Review of Systems Respiratory: Negative for cough, shortness of breath and wheezing. Cardiovascular: Negative for chest pain and palpitations. Gastrointestinal: Positive for diarrhea. Negative for abdominal pain, nausea and vomiting. Genitourinary: Negative for dysuria. [...] stretches and PT exercises. Use norco PRN. Relevant Medications HYDROcodone-acetaminophen ([place]) 5-325 MG tablet Class 1 obesity due to excess calories with serious comorbidity and body mass index (BMI) of 34.0 to 34.9 in adult Relevant Orders Hemoglobin A1c Benign essential hypertension - Primary BP elevated but previously controlled and monitor PRN. COPD (chronic obstructive pulmonary disease) ([facility]) No SOB and monitor. Dyslipidemia Relevant Orders Lipid panel HEIKE (generalized anxiety disorder) Symptoms tolerable with wellbutrin and continue. Gastroesophageal reflux disease without esophagitis Worsening symptoms and stop pepcid. Try omeprazole. Relevant Medications omeprazole (PriLOSEC) [address] capsule MDD (major depressive disorder), recurrent episode, mild Symptoms tolerable with wellbutrin and continue. Primary insomnia Sleeping well with restoril and continue. Irritable bowel syndrome with diarrhea Frequent symptoms and try bentyl PRN. Increase fiber. Relevant Medications dicyclomine (Bentyl) 20 MG tablet Adult hypothyroidism Relevant Orders TSH T4, free Encounter for long-term (current) use of medications Relevant Orders Basic metabolic panel CBC and differential Hepatic function panel documented in this encounter [facility] 04-10-2024 Telephone encount er Note [facility] 04-10-2024 Miscellaneous Notes Formattin g of this note might be different from the original. documented in this encounter [facility] 07-11-2023 History of Presen t illness Narrative [...] restoril and continue. documented in this encounter [facility] Evaluation note Diagnosis Women's annual routine gynecological examination documented in this encounter [facility] Phone: evaluation note* Diagnosis Benign essential hypertension (CMS/HCC)- Primary Essential hypertension, benign Lumbar spondylosis Lumbosacral spondylosis without myelopathy MDD (major depressive disorder), recurrent episode, mild (HCC) (CMS/HCC) HEIKE (generalized anxiety disorder) (CMS/HCC) Generalized anxiety disorder Primary insomnia Persistent disorder of initiating or maintaining sleep Gastroesophageal reflux disease without esophagitis Esophageal reflux [facility] Diagnosis Lumbar spondylosis Lumbosacral spondylosis without myelopathy [facility]* Diagnosis Primary insomnia Persistent disorder of initiating or maintaining sleep [facility]* Diagnosis Dermatitis- Primary Contact dermatitis and other eczema, due to unspecified cause BMI 35.0-35.9,adult Tobacco user Tobacco use disorder Urticaria Unspecified urticaria Benign essential hypertension (CMS/HCC)- Primary Essential hypertension, benign Lumbar spondylosis Lumbosacral spondylosis without myelopathy MDD (major depressive disorder), recurrent episode, mild (HCC) (CMS/HCC) HEIKE (generalized anxiety disorder) (CMS/HCC) Generalized anxiety disorder Primary insomnia Persistent disorder of initiating or maintaining sleep Gastroesophageal reflux disease without esophagitis Esophageal reflux Lumbar spondylosis Lumbosacral spondylosis without myelopathy [facility]* Diagnosis Dermatitis- Primary Contact dermatitis and other eczema, due to unspecified cause BMI 35.0-35.9,adult Tobacco user Tobacco use disorder Urticaria Unspecified urticaria Benign essential hypertension (CMS/HCC)- Primary Essential hypertension, benign Lumbar spondylosis Lumbosacral spondylosis without myelopathy MDD (major depressive disorder), recurrent episode, mild (HCC) (CMS/HCC) HEIKE (generalized anxiety disorder) (CMS/HCC) Generalized anxiety disorder Primary insomnia Persistent disorder of initiating or maintaining sleep Gastroesophageal reflux disease without esophagitis Esophageal reflux Lumbar spondylosis Lumbosacral spondylosis without myelopathy [facility]* Diagnosis Lumbar spondylosis Lumbosacral spondylosis without myelopathy documented [facility]* Diagnosis Dermatitis- Primary Contact dermatitis and other eczema, due to unspecified cause BMI 35.0-35.9,adult Tobacco user Tobacco use disorder Urticaria Unspecified urticaria Benign essential hypertension (CMS/HCC)- Primary Essential hypertension, benign Lumbar spondylosis Lumbosacral spondylosis without myelopathy MDD (major depressive disorder), recurrent episode, mild (HCC) (CMS/HCC) HEIKE (generalized anxiety disorder) (CMS/HCC) Generalized anxiety disorder Primary insomnia Persistent disorder of initiating or maintaining sleep Gastroesophageal reflux disease without esophagitis Esophageal reflux MDD (major depressive disorder), recurrent episode, mild (HCC) (CMS/HCC) Lumbar spondylosis Lumbosacral spondylosis without myelopathy [facility]* Diagnosis Dermatitis- Primary Contact dermatitis and other eczema, due to unspecified cause BMI 35.0-35.9,adult Tobacco user Tobacco use disorder Urticaria Unspecified urticaria Benign essential hypertension (CMS/HCC)- Primary Essential hypertension, benign Lumbar spondylosis Lumbosacral spondylosis without myelopathy MDD (major depressive disorder), recurrent episode, mild (HCC) (CMS/HCC) HEIKE (generalized anxiety disorder) (CMS/HCC) Generalized anxiety disorder Primary insomnia Persistent disorder of initiating or maintaining sleep Gastroesophageal reflux disease without esophagitis Esophageal reflux Primary insomnia Persistent disorder of initiating or maintaining sleep Lumbar spondylosis Lumbosacral spondylosis without myelopathy documented [facility]* Diagnosis Dermatitis- Primary Contact dermatitis and other eczema, due to unspecified cause BMI 35.0-35.9,adult Tobacco user Tobacco use disorder Urticaria Unspecified urticaria Benign essential hypertension- Primary Essential hypertension, benign Lumbar spondylosis Lumbosacral spondylosis without myelopathy MDD (major depressive disorder), recurrent episode, mild HEIKE (generalized anxiety disorder) Generalized anxiety disorder Primary insomnia Persistent disorder of initiating or maintaining sleep Gastroesophageal reflux disease without esophagitis Esophageal reflux Lumbar spondylosis Lumbosacral spondylosis without myelopathy documented [facility]* Diagnosis Dermatitis- Primary Contact dermatitis and other eczema, due to unspecified cause BMI 35.0-35.9,adult Tobacco user Tobacco use disorder Urticaria Unspecified urticaria Benign essential hypertension- Primary Essential hypertension, benign Lumbar spondylosis Lumbosacral spondylosis without myelopathy MDD (major depressive disorder), recurrent episode, mild HEIKE (generalized anxiety disorder) Generalized anxiety disorder Primary insomnia Persistent disorder of initiating or maintaining sleep Gastroesophageal reflux disease without esophagitis Esophageal reflux Primary insomnia Persistent disorder of initiating or maintaining sleep documented [facility]* Diagnosis Dermatitis- Primary Contact dermatitis and other eczema, due to unspecified cause BMI 35.0-35.9,adult Tobacco user Tobacco use disorder Urticaria Unspecified urticaria Benign essential hypertension- Primary Essential hypertension, benign Lumbar spondylosis Lumbosacral spondylosis without myelopathy MDD (major depressive disorder), recurrent episode, mild HEIKE (generalized anxiety disorder) Generalized anxiety disorder Primary insomnia Persistent disorder of initiating or maintaining sleep Gastroesophageal reflux disease without esophagitis Esophageal reflux Benign essential hypertension- Primary Essential hypertension, benign Chronic obstructive pulmonary disease, unspecified COPD type (HCC) Irritable bowel syndrome with diarrhea Irritable bowel syndrome MDD (major depressive disorder), recurrent episode, mild HEIKE (generalized anxiety disorder) Generalized anxiety disorder Gastroesophageal reflux disease without esophagitis Esophageal reflux Primary insomnia Persistent disorder of initiating or maintaining sleep Adult hypothyroidism Unspecified hypothyroidism Class 1 obesity due to excess calories with serious comorbidity and body mass index (BMI) of 34.0 to 34.9 in adult Encounter for long-term (current) use of medications Encounter for long-term (current) use of other medications Dyslipidemia Other and unspecified hyperlipidemia Lumbar spondylosis Lumbosacral spondylosis without myelopathy documented in this encounter [facility] Summary Purpose Family History No Family History Records FoundNo Family History Records FoundNo Family History Records Found Advance Directives No Advanced Directives Records FoundNo Advanced Directives Records FoundNo Advanced Directives Records Found Additional Source Comments Care Teams (unrecognized sec tion and content) [employer]ate[employer] Aide Relationship Specialty Start Date End Date Taz Watson MD [address] [place] [address] PCP - General Family Medicine 05/20/17 Caterer'S Aide Relationship Specialty Start Date End Date Taz Watson MD [address] [place] [address] PCP - General Family Medicine 07/11/23 Caterer'S Aide Relationship Specialty Start Date End Date Taz Watson MD [address] [place] [address] PCP - General Family Medicine 07/11/23 Caterer'S Aide Relationship Specialty Start Date End Date Taz Watson MD [address] [place] [address] PCP - General Family Medicine 07/11/23 Caterer'S Aide Relationship Specialty Start Date End Date Taz Watson MD [address] [place] [address] PCP - General Family Medicine 07/11/23 Caterer'S Aide Relationship Specialty Start Date End Date Taz Watson MD [address] [place] [address] PCP - General Family Medicine 07/11/23 Caterer'S Aide Relationship Specialty Start Date End Date Taz Watson MD [address] [place] [address] PCP - General Family Medicine 07/11/23 Caterer'S Aide Relationship Specialty Start Date End Date Taz Watson MD [address] [place] [address] PCP - General Family Medicine 07/11/23 Caterer'S Aide Relationship Specialty Start Date End Date Taz Watson MD [address] [place] [address] PCP - General Family Medicine 07/11/23 INFORMATION SOURCE (unrecogn ized section and content) DATE CREATED AUTHOR 03/15/2022 [facility] DATE CREATED AUTHOR AUTHOR'S ORGANIZ ATION 04/30/2022 [facility] DATE CREATED AUTHOR AUTHOR'S ORGANIZ ATION 12/31/2024 [facility] EPIC Reason for Visit (unrecogniz ed section and content) Reason Comments Follow-up 2 w Reason Onset Date Comments Med Refill 07/17/2023 Reason Onset Date Comments Med Refill 03/03/2024 Reason Onset Date Comments Med Refill 03/16/2024 Reason Onset Date Comments Med Refill 04/10/2024 Reason Onset Date Comments Med Refill 02/10/2024 Reason Onset Date Comments Med Refill 07/13/2024 Reason Onset Date Comments Med Refill 08/10/2024 Reason Onset Date Comments Med Refill 09/07/2024 Reason Onset Date Comments Med Refill 10/05/2024 Reason Onset Date Comments Med Refill 11/10/2024 Reason Onset Date Comments Med Refill 12/08/2024 Reason Onset Date Comments Med Refill 12/14/2024 Reason Comments Follow-up Check up Diarrhea Every time she eats GI Problem FOR RECORDS PERTAINING TO PATIENTS WHO ARE [...] BE BASED ON THE PRIMARY CLINICAL RECORDS. [employer] provides no warranty or guarantee of the accuracy or completeness of information in this document.
[2025-01-20 10:08] LABS: Hematocrit 42.3 % (36.0-48.0); Hemoglobin 14.5 g/dL (12.0-16.0); Immature Granulocytes Abs Auto 0.02 10^3/uL (0.00-0.03); Immature Granulocytes Pct Auto 0.2 % (0.0-0.5); Lymphocytes Absolute Auto 2.7 10^3/uL (1.2-3.8); Mean Corpuscular HGB Conc 34.3 g/dL (29.9-35.2); Mean Corpuscular Hemoglobin 33.3 pg (26.7-34.0); Mean Corpuscular Volume 97.2 fL (81.0-99.0); Platelet Count 243 10^3/uL (150-450); Red Blood Count 4.35 10^6/uL (4.20-5.40); White Blood Count 8.7 10^3/uL (4.0-11.0)
[2025-01-20 11:16] LABS: Alanine Aminotransferase 40 U/L (14-59); Albumin Globulin Ratio 1.1; Albumin Level 3.8 g/dL (3.4-5.0); Alkaline Phosphatase 156 U/L (46-116); Anion Gap 9.9; Aspartate Amino Transferase 26 U/L (15-37); Blood Urea Nitrogen 8.0 mg/dL (7.0-18.0); Calcium 9.6 mg/dL (8.5-10.1); Carbon Dioxide 30.2 mmol/L (21.0-32.0); Chloride 105 mmol/L (98-107); Cholesterol 217 mg/dL (<=200); Estimated GFR (African America >60 (>=60 mL/min/1.73m^2); Estimated GFR (Non-African Ame >60 (>=60 mL/min/1.73m^2); Globulin 3.5 g/dL; Glucose 94 mg/dL (74-106); HDL Cholesterol 56 mg/dL (40-60); Potassium 3.1 mmol/L (3.5-5.1); Sodium 142 mmol/L (136-145); Thyroid Stimulating Hormone 7.482 uIU/mL (0.358-3.740); Total Protein 7.3 g/dL (6.4-8.2); Triglycerides 116 mg/dL (<=150); VLDL CHOLESTEROL 23.2 mg/dL
== END 2025-01-20 09:11 | disposition home or self-care (01) ==
LOC: LAB 09:13
PROVIDERS: PCP Family Medicine; Visit Provider Family Medicine
DX: E78.5 Hyperlipidemia, unspecified (principal); E66.811 Obesity, class 1; E66.09 Other obesity due to excess calories; Z68.34 Body mass index [BMI] 34.0-34.9, adult; Z79.899 Other long term (current) drug therapy; E03.9 Hypothyroidism, unspecified
CPT/HCPCS: 36415; 80048; 80061; 80076; 83036; 84439; 84443; 85025